=== PATIENT | female | born 1940 | race Caucasian/White ===

== ENCOUNTER 2019-04-12 14:15 | Inpatient (IN) | payer MEDICARE, BC ==
[2019-04-12] MEDS ORDERED: Sodium Chloride 0.9% 10 ML Syringe FLUSH PRN (16:06)
[2019-04-12] MEDS ORDERED: Temazepam 15 MG Cap PO PRN (16:06)
[2019-04-12] MEDS ORDERED: Acetaminophen/HYDROcodone 325-5 MG Tab PO PRN (16:06)
[2019-04-12] MEDS ORDERED: Docusate Sodium 100 MG Cap PO PRN (16:06)
[2019-04-12] MEDS ORDERED: Albuterol 8 GM Inhaler INH PRN (16:11)
[2019-04-12 16:37] LABS: CHLORIDE,CL 104 mEq/L (98-106); SODIUM,NA 143 mEq/L (136-145)
[2019-04-12] MEDS ORDERED: Levofloxacin/Dextrose 5%-Water 500 MG in Premix Bag 1 BAG IV ONE ×2 (16:45→17:00)
[2019-04-12] MEDS: Albuterol/Ipratropium 3.0-0.5 MG/3 ML Neb Soln NEB SCH ×2 (16:57→20:08)
[2019-04-12] MEDS: Potassium Chloride 10 MEQ Tab.ER PO SCH (16:57)
[2019-04-12] MEDS: methylPREDNISolone Sodium Succinate 125 MG/2 ML SDV IVPUSH SCH (16:58)
[2019-04-12] MEDS ORDERED: Levofloxacin/Dextrose 5%-Water 250 MG in Premix Bag 1 BAG IV SCH (17:00)
[2019-04-12 17:37] LABS: O2 DELIVERY DEVICE NASAL CANNULA
[2019-04-12 17:38] LABS: BICARBONATE,ARTERIAL 32.5 mm/L (22.0-26.0); O2 SATURATION ARTERIAL 89 % (95-98); PCO2 ARTERIAL 52 mm/Hg0 (35-45); PO2 ARTERIAL 57 mm/Hg (80-100)
[2019-04-12] MEDS: Enoxaparin 40 MG/0.4 ML Syringe SUBCUT SCH (20:08)
[2019-04-12] MEDS: Acetaminophen 500 MG Tab PO PRN (20:11)
[2019-04-13] MEDS: Pantoprazole 40 MG Tab.CR PO SCH (06:54)
[2019-04-13] MEDS: Torsemide 20 MG Tab PO SCH (07:11)
[2019-04-13] MEDS: Potassium Chloride 10 MEQ Tab.ER PO SCH ×2 (07:11→17:39)
[2019-04-13] MEDS: methylPREDNISolone Sodium Succinate 125 MG/2 ML SDV IVPUSH SCH ×2 (07:11→19:37)
[2019-04-13] MEDS: Albuterol/Ipratropium 3.0-0.5 MG/3 ML Neb Soln NEB SCH ×4 (07:11→19:36)
[2019-04-13] MEDS: Acetaminophen 500 MG Tab PO PRN ×2 (09:26→19:37)
[2019-04-13] MEDS: Pantoprazole 40 MG Vial IVPUSH SCH (09:28)
[2019-04-13] MEDS ORDERED: Iopamidol 612 MG/ML 100 ML Bottle IVPUSH ONE (10:32)
[2019-04-13] MEDS ORDERED: Levofloxacin/Dextrose 5%-Water 250 MG in Premix Bag 1 BAG IV SCH (16:00)
[2019-04-13] MEDS: Enoxaparin 40 MG/0.4 ML Syringe SUBCUT SCH (19:36)
--- NOTE | 2019-04-13 21:02 | PCM.PN ---
- General Info Date of Service: 04/13/19 Admission Dx/Problem (Free Text): COPD Exacerbation Functional Status: Reports: Pain Controlled, Tolerating Diet, Ambulating - Review of Systems General: Reports: Weakness, Fatigue. Denies: Fever HEENT: Reports: Sinus Congestion, Rhinitis Pulmonary: Reports: Shortness of Breath, Pleuritic Chest Pain, Cough, Sputum, Wheezing Cardiovascular: Denies: Chest Pain, Lightheadedness Gastrointestinal: Reports: Other (heartburn). Denies: Abdominal Pain, Nausea, Vomiting Genitourinary: Reports: No Symptoms Musculoskeletal: Reports: Back Pain Skin: Reports: No Symptoms Neurological: Reports: No Symptoms Psychiatric: Reports: No Symptoms - Patient Data Vitals - Most Recent: Last Vital Signs Temp 98.1 F 04/13/19 20:00 Pulse 101 H 04/13/19 20:00 Resp 18 04/13/19 20:00 BP 131/71 04/13/19 20:00 Pulse Ox 97 04/13/19 20:00 Weight - Most Recent: 152 lb 4.8 oz Lab Results Last 24 Hours: Laboratory Results - last 24 hr 04/13/19 Range/Units 06:58 Urine Color Yellow (YELLOW) Urine Appearance Clear (CLEAR) Urine pH 8.5 H (4.5-8.0) Ur Specific [place] 1.015 (1.003-1.020) Urine Protein Negative (NEGATIVE) mg/dL Urine Glucose (UA) Negative (NEGATIVE) mg/dL Urine Ketones Negative (NEGATIVE) mg/dL Urine Occult Blood Negative (NEGATIVE) Urine Nitrite Negative (NEGATIVE) Urine Bilirubin Negative (NEGATIVE) Urine Urobilinogen 0.2 (0.2-1.0) EU/dL Ur Leukocyte Esterase Negative (NEGATIVE) Urine RBC Not seen (0-5) /HPF Urine WBC Not seen (0-5) /HPF Ur Squamous Epith Cells Occasional H (NOT SEEN) /HPF Urine Bacteria Occasional H (NOT SEEN) /HPF Med Orders - Current: Current Medications Acetaminophen (Tylenol Extra Strength) 1,000 mg PO Q6H PRN PRN Reason: Pain Last Admin: 04/13/19 19:37 Dose: 1,000 mg Hydrocodone Bitart/Acetaminophen ([place] 325-5 Mg) 1 tab PO Q4H PRN PRN Reason: Pain (moderate 4-6) Albuterol (Ventolin Hfa) 0 gm INH Q6H PRN PRN Reason: Shortness of Breath Albuterol/Ipratropium (Duoneb 3.0-0.5 Mg/3 Ml) 3 ml NEB QIDRT [facility] Last Admin: 04/13/19 19:36 Dose: 3 ml Docusate Sodium (Colace) 100 mg PO BID PRN PRN Reason: Constipation Enoxaparin Sodium (Lovenox) 40 mg SUBCUT Q24H [facility] Last Admin: 04/13/19 19:36 Dose: 40 mg Levofloxacin/Dextrose 250 mg/ (Premix) 50 mls @ 50 mls/hr IV Q24H [facility] Last Admin: 04/13/19 17:40 Dose: 50 mls/hr Magnesium Oxide (Magnesium Oxide) 250 mg PO DAILY [facility] Last Admin: 04/13/19 07:11 Dose: 250 mg Methylprednisolone Sodium Succinate (Solu-Medrol) 62.5 mg IVPUSH BID [facility] Last Admin: 04/13/19 19:37 Dose: 62.5 mg Pantoprazole Sodium (Protonix) 40 mg PO ACBREAKFAST [facility] Last Admin: 04/13/19 06:54 Dose: 40 mg Pantoprazole Sodium (Protonix Iv) 40 mg IVPUSH DAILY [facility] Last Admin: 04/13/19 09:28 Dose: 40 mg Potassium Chloride (Klor-Con 10) 20 meq PO BIDMEALS [facility] Last Admin: 04/13/19 17:39 Dose: 20 meq Sodium Chloride (Saline Flush) 10 ml FLUSH ASDIRECTED PRN PRN Reason: Keep Vein Open Temazepam (Restoril) 15 mg PO BEDTIME PRN PRN Reason: Sleep Torsemide (Demadex) 20 mg PO DAILY [facility] Last Admin: 04/13/19 07:11 Dose: 20 mg Discontinued Medications Levofloxacin/Dextrose 500 mg/ (Premix) 100 mls @ 100 mls/hr IV ONETIME ONE Stop: 04/12/19 17:59 Last Admin: 04/12/19 16:57 Dose: 100 mls/hr Iopamidol (Isovue-300 (61%)) 100 ml IVPUSH ONETIME ONE Stop: 04/13/19 10:33 Last Admin: 04/13/19 19:20 Dose: 100 ml - Exam Quality Assessment: Supplemental Oxygen General: Alert, Oriented HEENT: Mucous Membr. Moist/[place] Neck: Supple Lungs: Decreased Breath Sounds, Wheezing Cardiovascular: Regular Rate, Regular Rhythm GI/Abdominal Exam: Normal Bowel Sounds, Soft, Non-Tender Extremities: Normal Inspection, No Pedal Edema Skin: Warm, Dry Neurological: No New Focal Deficit - Problem List & Annotations (1) COPD exacerbation SNOMED Code(s): 134264905 Code(s): J44.1 - CHRONIC OBSTRUCTIVE PULMONARY DISEASE W (ACUTE) EXACERBATION Status: Acute Priority: High Current Visit: Yes - Problem List Review Problem List Initiated/Reviewed/Updated: Yes - My Orders Last 24 Hours: My Active Orders 04/13/19 08:45 Pantoprazole [ProTONIX IV] 40 mg IVPUSH DAILY 04/13/19 10:26 Chest w Cont [CT] Routine - Assessment Assessment:: COPD Exacerbation - Plan Plan:: Patient continues to feel short of breath, worsens with eating, conversation and ambulation but admits better than yesterday on admit. She is able to tolerate short distances with oxygen on. Sats maintaining over 90% today. Continues to have moist cough, productive at times. Lung sounds diminished, expiratory wheezing throughout. Complains of pain under her right collarbone that radiates through to her back. States thought possibly related to heartburn , took her omeprazole early today. Worse with cough. WBC on admit stable at 8.5. D-Dimer negative. Troponin negative. IV Protonix given. Continue IV antibiotics and steroids, nebulizer treatments. Inappropriate for discharge.
[2019-04-14] MEDS: Pantoprazole 40 MG Tab.CR PO SCH (06:25)
[2019-04-14] MEDS: Albuterol/Ipratropium 3.0-0.5 MG/3 ML Neb Soln NEB SCH (07:31)
[2019-04-14] MEDS: Pantoprazole 40 MG Vial IVPUSH SCH (07:31)
[2019-04-14] MEDS: methylPREDNISolone Sodium Succinate 125 MG/2 ML SDV IVPUSH SCH (07:31)
[2019-04-14] MEDS: Potassium Chloride 10 MEQ Tab.ER PO SCH (07:31)
[2019-04-14] MEDS: Torsemide 20 MG Tab PO SCH (07:31)
[2019-04-14 07:47] VITALS: BP 120/65
--- NOTE | 2019-04-14 13:42 | PCM.DCSUM1 ---
Discharge Summary - Hospital Course Free Text/Narrative:: Patient presented to clinic to DR. Chakraborty with increased chest congestion, cough and shortness of breath. Chest tight. More short of breath than her usual related to her COPD. Cough has been dry. Patient has been experiencing pleuritic pain with cough near the collarbone. She relates she always has pain in her back with cough but over the last 2 weeks seems to radiate from chest through to her back. Lung sounds in clinic noted minimal air exchange with diffuse wheezing throughout. ADmitted for further work up, chest xray, antibiotics and steroids. Diagnosis: Stroke: No Modified Kaden Scale: No Symptoms at All Modified Kaden Scale Score: 0 - Discharge Data Discharge Date: 04/14/19 Discharge Disposition: Home, Self-Care 01 Condition: Good - Discharge Diagnosis/Problem(s) (1) COPD exacerbation SNOMED Code(s): 523668475 ICD Code: J44.1 - CHRONIC OBSTRUCTIVE PULMONARY DISEASE W (ACUTE) EXACERBATION Status: Acute Priority: High - Patient Summary/Data Complications: none Hospital Course: Patient has improved. Does still have shortness of breath but feels more near her norm. She has better air exchange, less wheezing. Is ambulating with oxygen and tolerating better. She has been afebrile. Was given dose of IV Protonix as she felt that the chest discomfort possibly related to heartburn. CT scan of chest was done, no new concerns. Will discharge home on Levaquin for 7 days, prednisone for 5 days, her usual nebs and oxygen. - Patient Instructions Diet: Usual Diet as Tolerated Activity: As Tolerated - Discharge Plan *PRESCRIPTION DRUG MONITORING PROGRAM REVIEWED*: No *COPY OF PRESCRIPTION DRUG MONITORING REPORT IN PATIENT KATELYN: No Prescriptions/Med Rec: Levofloxacin [Levaquin] 500 mg PO DAILY #7 tablet predniSONE [Prednisone] 40 mg PO DAILY #10 tablet Home Medications: Home Meds Acetaminophen [Tylenol Extra Strength] 1,000 mg PO ASDIRECTED PRN 09/02/18 [ History] Albuterol [Ventolin HFA] 1 puff INH Q6HR PRN 09/02/18 [History] Arformoterol [Brovana] 1 each INH BID 09/02/18 [History] Magnesium 200 mg PO DAILY 09/02/18 [History] Omeprazole 20 mg PO DAILY 09/02/18 [History] Potassium Chloride [Klor-Con M20] 20 meq PO BID 09/02/18 [History] Torsemide 20 mg PO DAILY 09/02/18 [History] Levofloxacin [Levaquin] 500 mg PO DAILY #7 tablet 04/14/19 [Rx] predniSONE [Prednisone] 40 mg PO DAILY #10 tablet 04/14/19 [Rx] Patient Handouts: Chronic Obstructive Pulmonary Disease Exacerbation Referrals: Vince Chakraborty MD [Primary Care Provider] - (See Dr. Chakraborty in 2 weeks for recheck) - Discharge Summary/Plan Comment DC Time >30 min.: No - General Info Date of Service: 04/14/19 Admission Dx/Problem (Free Text: COPD Exacerbation Functional Status: Reports: Pain Controlled, Tolerating Diet, Ambulating - Review of Systems General: Reports: Weakness, Fatigue. Denies: Fever HEENT: Reports: Rhinitis Pulmonary: Reports: Shortness of Breath, Pleuritic Chest Pain, Cough. Denies: Sputum Cardiovascular: Denies: Chest Pain, Edema, Lightheadedness Gastrointestinal: Denies: Abdominal Pain, Nausea, Vomiting Genitourinary: Reports: No Symptoms Musculoskeletal: Reports: No Symptoms Skin: Reports: No Symptoms Neurological: Reports: No Symptoms Psychiatric: Reports: No Symptoms - Patient Data Vitals - Most Recent: Last Vital Signs Temp 98.1 F 04/14/19 07:47 Pulse 67 04/14/19 07:47 Resp 20 04/14/19 07:47 BP 120/65 04/14/19 07:47 Pulse Ox 97 04/14/19 07:47 Weight - Most Recent: 152 lb 4.8 oz Med Orders - Current: Current Medications Discontinued Medications Acetaminophen (Tylenol Extra Strength) 1,000 mg PO Q6H PRN PRN Reason: Pain Last Admin: 04/13/19 19:37 Dose: 1,000 mg Hydrocodone Bitart/Acetaminophen ([place] 325-5 Mg) 1 tab PO Q4H PRN PRN Reason: Pain (moderate 4-6) Albuterol (Ventolin Hfa) 0 gm INH Q6H PRN PRN Reason: Shortness of Breath Albuterol/Ipratropium (Duoneb 3.0-0.5 Mg/3 Ml) 3 ml NEB QIDRT [facility] Last Admin: 04/14/19 07:31 Dose: 3 ml Docusate Sodium (Colace) 100 mg PO BID PRN PRN Reason: Constipation Enoxaparin Sodium (Lovenox) 40 mg SUBCUT Q24H [facility] Last Admin: 04/13/19 19:36 Dose: 40 mg Levofloxacin/Dextrose 250 mg/ (Premix) 50 mls @ 50 mls/hr IV Q24H [facility] Last Admin: 04/13/19 17:40 Dose: 50 mls/hr Levofloxacin/Dextrose 500 mg/ (Premix) 100 mls @ 100 mls/hr IV ONETIME ONE Stop: 04/12/19 17:59 Last Admin: 04/12/19 16:57 Dose: 100 mls/hr Iopamidol (Isovue-300 (61%)) 100 ml IVPUSH ONETIME ONE Stop: 04/13/19 10:33 Last Admin: 04/13/19 19:20 Dose: 100 ml Magnesium Oxide (Magnesium Oxide) 250 mg PO DAILY [facility] Last Admin: 04/14/19 07:31 Dose: 250 mg Methylprednisolone Sodium Succinate (Solu-Medrol) 62.5 mg IVPUSH BID [facility] Last Admin: 04/14/19 07:31 Dose: 62.5 mg Pantoprazole Sodium (Protonix) 40 mg PO ACBREAKFAST [facility] Last Admin: 04/14/19 06:25 Dose: Not Given Pantoprazole Sodium (Protonix Iv) 40 mg IVPUSH DAILY [facility] Last Admin: 04/14/19 07:31 Dose: 40 mg Potassium Chloride (Klor-Con 10) 20 meq PO BIDMEALS [facility] Last Admin: 04/14/19 07:31 Dose: 20 meq Sodium Chloride (Saline Flush) 10 ml FLUSH ASDIRECTED PRN PRN Reason: Keep Vein Open Temazepam (Restoril) 15 mg PO BEDTIME PRN PRN Reason: Sleep Torsemide (Demadex) 20 mg PO DAILY [facility] Last Admin: 04/14/19 07:31 Dose: 20 mg - Exam Quality Assessment: Reports: Supplemental Oxygen General: Reports: Alert, Oriented HEENT: Reports: Mucous Membr. Moist/[place] Neck: Reports: Supple Lungs: Reports: Decreased Breath Sounds Cardiovascular: Reports: Regular Rate, Regular Rhythm GI/Abdominal Exam: Normal Bowel Sounds, Soft, Non-Tender Extremities: Normal Inspection, No Pedal Edema Skin: Reports: Warm, Dry Neurological: Reports: No New Focal Deficit
== END 2019-04-14 09:20 | disposition home or self-care (01) | DRG 192 ==
LOC: CC.MS 14:15 → UNDOADMIN 14:15 → CC.MS 16:06
PROVIDERS: ADMIT Family Medicine; ATTEND Family Medicine
DX: J44.1 Chronic obstructive pulmonary disease with (acute) exacerbation (principal); K21.9 Gastro-esophageal reflux disease without esophagitis; R07.81 Pleurodynia; E78.5 Hyperlipidemia, unspecified; M81.8 Other osteoporosis without current pathological fracture; E55.9 Vitamin D deficiency, unspecified; Z88.8 Allergy status to other drugs, medicaments and biological substances; Z98.49 Cataract extraction status, unspecified eye; Z87.891 Personal history of nicotine dependence
CPT/HCPCS: 36415; 36600; 71046; 71260; 80048; 81001; 82803; 84484; 85025; 85379; 86140; 93005; 94640; A4217; A9270-GY; C9113; J1650; J1956; J2930; J7620-GY; Q9967

== ENCOUNTER 2019-08-16 14:00 | Inpatient (IN) | payer MEDICARE, BC ==
[2019-08-16] MEDS ORDERED: Temazepam 15 MG Cap PO PRN (15:05)
[2019-08-16] MEDS ORDERED: Acetaminophen 325 MG Tab PO PRN (15:05)
[2019-08-16] MEDS ORDERED: Sodium Chloride 0.9% 10 ML Syringe FLUSH PRN (15:05)
[2019-08-16] MEDS ORDERED: Potassium Chloride Riders 40 MEQ in Premix Bag 1 BAG IV ONE (15:53)
[2019-08-16] MEDS ORDERED: Levofloxacin/Dextrose 5%-Water 500 MG in Premix Bag 1 BAG IV SCH (16:00)
[2019-08-16] MEDS: Albuterol/Ipratropium 3.0-0.5 MG/3 ML Neb Soln NEB SCH ×2 (16:04→20:08)
[2019-08-16] MEDS: methylPREDNISolone Sodium Succinate 125 MG/2 ML SDV IVPUSH SCH (16:05)
[2019-08-16] MEDS: Enoxaparin 30 MG/0.3 ML Syringe SUBCUT SCH (16:18)
[2019-08-16] MEDS ORDERED: Sodium Chloride 0.9% 250 ML IV SCH (17:45)
[2019-08-16] MEDS: Levofloxacin/Dextrose 5%-Water 500 MG in Premix Bag 1 BAG IV SCH (19:32)
[2019-08-16] MEDS ORDERED: Magnesium Sulfate/D5W 2 GM in Premix Bag 1 BAG IV ONE (20:42)
[2019-08-16] MEDS: BROVANA 15 MCG INH SCH (21:39)
[2019-08-17] MEDS ORDERED: Albuterol 0.083% 2.5 MG/3 ML Neb Soln INH SCH
[2019-08-17] MEDS: Acetaminophen 500 MG Tab PO PRN ×3 (04:02→19:58)
[2019-08-17] MEDS ORDERED: OMEPRAZOLE 20 MG PO SCH ×2 (07:00→08:51)
[2019-08-17 07:40] LABS: CHLORIDE,CL 100 mEq/L (98-106); SODIUM,NA 141 mEq/L (136-145)
[2019-08-17] MEDS ORDERED: TORSEMIDE 20 MG PO SCH (08:00)
[2019-08-17] MEDS ORDERED: KCL 20 MEQ PO SCH (08:00)
[2019-08-17] MEDS ORDERED: MAGNESIUM 200 MG PO SCH (08:00)
[2019-08-17] MEDS: BROVANA 15 MCG INH SCH (08:26)
[2019-08-17] MEDS: Albuterol/Ipratropium 3.0-0.5 MG/3 ML Neb Soln NEB SCH ×4 (08:35→19:49)
[2019-08-17] MEDS: methylPREDNISolone Sodium Succinate 125 MG/2 ML SDV IVPUSH SCH ×2 (08:35→15:58)
--- NOTE | 2019-08-17 08:54 | PCM.PN ---
- General Info Date of Service: 08/17/19 Admission Dx/Problem (Free Text): COPD Exacerbation Hypokalemia Hypomagnesemia Functional Status: Reports: Pain Controlled, Tolerating Diet, Ambulating ( ambulating short distances but admits gets short of breath) - Review of Systems General: Reports: Weakness, Fatigue. Denies: Fever HEENT: Reports: Rhinitis. Denies: Ear Pain, Sinus Congestion Pulmonary: Reports: Shortness of Breath, Cough. Denies: Wheezing Cardiovascular: Denies: Chest Pain, Edema, Lightheadedness Gastrointestinal: Denies: Abdominal Pain, Nausea, Vomiting Genitourinary: Reports: No Symptoms Musculoskeletal: Reports: No Symptoms Skin: Reports: No Symptoms Neurological: Reports: No Symptoms Psychiatric: Reports: No Symptoms - Patient Data Vitals - Most Recent: Last Vital Signs Temp 98.1 F 08/17/19 07:44 Pulse 64 08/17/19 07:44 Resp 18 08/17/19 07:44 BP 115/54 L 08/17/19 07:44 Pulse Ox 97 08/17/19 07:44 Weight - Most Recent: 147 lb 11.2 oz Lab Results Last 24 Hours: Laboratory Results - last 24 hr 08/16/19 08/16/19 08/16/19 Range/Units 15:15 15:15 17:46 WBC 11.4 H (5.0-10.0) 10^3/uL RBC 4.03 (4.00-5.50) 10^6/uL Hgb 11.8 L (12.0-16.0) g/dL Hct 36.9 L (37.0-47.0) % MCV 91.6 (82.0-94.0) fL MCH 29.3 (27.0-32.0) pg MCHC 32.0 L (33.0-38.0) g/dL RDW Coeff of Vivek 12.1 (11.0-15.0) % Plt Count 275 (150-400) 10^3/uL Neut % (Auto) 67.5 (35-85) % Lymph % (Auto) 20.0 (10-55) % [place] % (Auto) 11.2 (0-16) % Eos % (Auto) 0.9 (0-5) % Baso % (Auto) 0.4 (0-3) % Neut # (Auto) 7.70 H (1.80-7.00) 10^3/uL Lymph # (Auto) 2.28 (1.00-4.80) 10^3/uL [place] # (Auto) 1.28 H (0.00-0.80) 10^3/uL Eos # (Auto) 0.10 (0.00-0.45) 10^3/uL Baso # (Auto) 0.04 10^3/uL Sodium 143 (136-145) mEq/L Potassium 2.9 L* D (3.5-5.0) mEq/L Chloride 98 (98-106) mEq/L Carbon Dioxide 42 H* (21-32) mmol/L BUN 13 (7-18) mg/dL Creatinine 1.0 (0.6-1.0) mg/dL Est Cr Clr Drug Dosing 34.90 mL/min Estimated GFR (MDRD) 53 L (>=60) mL/min Glucose 87 (75-99) mg/dL Calcium 8.3 L (8.4-10.1) mg/dL Magnesium 1.6 L (1.8-2.4) mg/dL C-Reactive Protein 11.9 H (0.2-0.8) mg/dL 08/17/19 08/17/19 Range/Units 05:11 07:10 WBC 8.4 (5.0-10.0) 10^3/uL RBC 3.77 L (4.00-5.50) 10^6/uL Hgb 11.0 L (12.0-16.0) g/dL Hct 33.8 L (37.0-47.0) % MCV 89.7 (82.0-94.0) fL MCH 29.2 (27.0-32.0) pg MCHC 32.5 L (33.0-38.0) g/dL RDW Coeff of Vivek 11.9 (11.0-15.0) % Plt Count 284 (150-400) 10^3/uL Neut % (Auto) 82.2 (35-85) % Lymph % (Auto) 11.9 (10-55) % [place] % (Auto) 5.8 (0-16) % Eos % (Auto) 0 (0-5) % Baso % (Auto) 0.1 (0-3) % Neut # (Auto) 6.91 (1.80-7.00) 10^3/uL Lymph # (Auto) 1.00 (1.00-4.80) 10^3/uL [place] # (Auto) 0.49 (0.00-0.80) 10^3/uL Eos # (Auto) 0.00 (0.00-0.45) 10^3/uL Baso # (Auto) 0.01 10^3/uL Sodium 141 (136-145) mEq/L Potassium 3.5 D (3.5-5.0) mEq/L Chloride 100 (98-106) mEq/L Carbon Dioxide 36 H (21-32) mmol/L BUN 13 (7-18) mg/dL Creatinine 0.9 (0.6-1.0) mg/dL Est Cr Clr Drug Dosing 38.77 mL/min Estimated GFR (MDRD) > 60 (>=60) mL/min Glucose 135 H D (75-99) mg/dL Calcium 8.2 L (8.4-10.1) mg/dL Magnesium 2.1 (1.8-2.4) mg/dL C-Reactive Protein 9.5 H (0.2-0.8) mg/dL Med Orders - Current: Current Medications Acetaminophen (Tylenol) 650 mg PO Q4H PRN PRN Reason: Pain (Mild 1-3)/fever Acetaminophen (Tylenol Extra Strength) 1,000 mg PO Q6H PRN PRN Reason: Pain Last Admin: 08/17/19 04:02 Dose: 1,000 mg Albuterol/Ipratropium (Duoneb 3.0-0.5 Mg/3 Ml) 3 ml NEB QIDRT [facility] Last Admin: 08/17/19 08:35 Dose: 3 ml Enoxaparin Sodium (Lovenox) 30 mg SUBCUT Q24H [facility] Last Admin: 08/16/19 16:18 Dose: 30 mg Levofloxacin/Dextrose 500 mg/ (Premix) 100 mls @ 100 mls/hr IV DAILY@1999 [facility] Last Admin: 08/16/19 19:32 Dose: Not Given Methylprednisolone Sodium Succinate (Solu-Medrol) 62.5 mg IVPUSH BID@0800,1600 [facility] Last Admin: 08/17/19 08:35 Dose: 62.5 mg Patients Own (Magnesium 200mg) 0 each PO DAILY [facility] Last Admin: 08/17/19 08:27 Dose: 1 each Patients Own (Omeprazole 20mg) 0 each PO ACBREAKFAST [facility] Last Admin: 08/17/19 07:02 Dose: 20 each Patients Own Brovana (15 Mcg) 0 each INH BIDRT [facility] Last Admin: 08/17/19 08:26 Dose: 1 each Non-Formulary Medication (Nf Drug) 0 each PO TIDMEALS [facility] Sodium Chloride (Saline Flush) 10 ml FLUSH ASDIRECTED PRN PRN Reason: Keep Vein Open Temazepam (Restoril) 15 mg PO BEDTIME PRN PRN Reason: Sleep Torsemide (Demadex) 20 mg PO DAILY [facility] Last Admin: 08/17/19 08:26 Dose: 20 mg Discontinued Medications Levofloxacin/Dextrose 500 mg/ (Premix) 100 mls @ 100 mls/hr IV Q24H [facility] Last Admin: 08/16/19 16:38 Dose: 100 mls/hr Potassium Chloride 40 meq/ (Premix) 100 mls @ 25 mls/hr IV ONETIME ONE Stop: 08/16/19 19:52 Last Admin: 08/16/19 16:11 Dose: 25 mls/hr Sodium Chloride (Normal Saline) 250 mls @ 75 mls/hr IV ASDIRECTED [facility] Stop: 08/16/19 21:04 Last Admin: 08/16/19 18:04 Dose: 75 mls/hr Magnesium Sulfate/Dextrose 2 (gm/ Premix) 200 mls @ 100 mls/hr IV ONETIME ONE Stop: 08/16/19 22:41 Last Admin: 08/16/19 21:38 Dose: 100 mls/hr Patients Own Kcl 20 (Meq) 0 each PO BIDMEALS [facility] Last Admin: 08/17/19 08:27 Dose: 1 each - Exam Quality Assessment: Supplemental Oxygen General: Alert, Oriented HEENT: Mucous Membr. Moist/[place] Neck: Supple Lungs: Decreased Breath Sounds Cardiovascular: Regular Rate, Regular Rhythm GI/Abdominal Exam: Normal Bowel Sounds, Soft, Non-Tender Extremities: Normal Inspection, Pedal Edema (trace) Skin: Warm, Dry Neurological: No New Focal Deficit - Problem List & Annotations (1) COPD exacerbation SNOMED Code(s): 380195257 Code(s): J44.1 - CHRONIC OBSTRUCTIVE PULMONARY DISEASE W (ACUTE) EXACERBATION Status: Acute Priority: High Current Visit: Yes (2) Hypokalemia SNOMED Code(s): 97201978 Code(s): E87.6 - HYPOKALEMIA Status: Acute Priority: High Current Visit : Yes (3) Hypomagnesemia SNOMED Code(s): 979222541 Code(s): E83.42 - HYPOMAGNESEMIA Status: Acute Priority: High Current Visit: Yes - Problem List Review Problem List Initiated/Reviewed/Updated: Yes - My Orders Last 24 Hours: My Active Orders 08/16/19 20:31 Acetaminophen [Tylenol Extra Strength] 1,000 mg PO Q6H PRN 08/16/19 21:00 Non-Formulary Medication [NF Drug] 0 each INH BIDRT 08/17/19 07:00 Non-Formulary Medication [NF Drug] 0 each PO ACBREAKFAST 08/17/19 08:00 Non-Formulary Medication [NF Drug] 0 each PO DAILY Torsemide [Demadex] 20 mg PO DAILY 08/17/19 12:00 Non-Formulary Medication [NF Drug] See Dose Instructions PO TIDMEALS - Assessment Assessment:: COPD Exacerbation Hypokalemia Hypomagnesemia - Plan Plan:: Patient feeling mildly better at rest. Admits still gets short of breath easily with any exertion. Does continue to have tight cough. Is chronically on oxygen at home for COPD. Lung sounds diminished this am. Potassium has improved to 3.5 today, sodium 141. CRP 9.5. Magnesium 2.1 today. Was given IV potassium, IV magnesium yesterday. Will transfer patient to acute inpatient due to dyspnea. Continue IV Levaquin, steroids and nebs. Follow electrolytes. Potassium oral dose increased to TID.
[2019-08-17] MEDS ORDERED: MAGNESIUM OXIDE 250 MG PO SCH (09:00)
[2019-08-17] MEDS: ARFORMOTEROL 15 MCG INH SCH ×2 (09:23→19:49)
[2019-08-17] MEDS: Potassium Chloride 10 MEQ Tab.ER PO SCH ×2 (12:05→18:35)
[2019-08-17] MEDS: Enoxaparin 30 MG/0.3 ML Syringe SUBCUT SCH (15:58)
[2019-08-17] MEDS: Levofloxacin/Dextrose 5%-Water 500 MG in Premix Bag 1 BAG IV SCH (19:49)
[2019-08-18] MEDS ORDERED: Pantoprazole 40 MG Tab.CR ONE (06:32)
[2019-08-18] MEDS: Pantoprazole 40 MG Tab.CR PO SCH (06:48)
[2019-08-18 07:34] LABS: CHLORIDE,CL 102 mEq/L (98-106); SODIUM,NA 146 mEq/L (136-145)
[2019-08-18] MEDS: Albuterol/Ipratropium 3.0-0.5 MG/3 ML Neb Soln NEB SCH ×4 (07:41→19:39)
[2019-08-18] MEDS: methylPREDNISolone Sodium Succinate 125 MG/2 ML SDV IVPUSH SCH ×2 (07:41→16:08)
[2019-08-18] MEDS: Potassium Chloride 10 MEQ Tab.ER PO SCH ×3 (07:42→17:34)
[2019-08-18] MEDS: Torsemide 20 MG Tab PO SCH (07:42)
[2019-08-18] MEDS ORDERED: Potassium Chloride 10 MEQ Tab.ER ONE ×2 (07:42→17:41)
[2019-08-18] MEDS: ARFORMOTEROL 15 MCG INH SCH ×2 (07:43→19:39)
--- NOTE | 2019-08-18 08:57 | PCM.PN ---
- General Info Date of Service: 08/18/19 Admission Dx/Problem (Free Text): COPD Exacerbation Hypokalemia Hypomagnesemia Functional Status: Reports: Pain Controlled, Tolerating Diet, Ambulating - Review of Systems General: Reports: Weakness, Fatigue, Malaise HEENT: Reports: Post Nasal Drip, Sinus Congestion, Rhinitis Pulmonary: Reports: Shortness of Breath, Cough, Wheezing Cardiovascular: Denies: Chest Pain, Edema, Lightheadedness Gastrointestinal: Denies: Abdominal Pain, Nausea, Vomiting Genitourinary: Reports: No Symptoms Musculoskeletal: Reports: No Symptoms Skin: Reports: No Symptoms Neurological: Reports: Other (complains of tremors at times, worse now but admits has had for years. ) - Patient Data Vitals - Most Recent: Last Vital Signs Temp 98.1 F 08/18/19 07:54 Pulse 72 08/18/19 07:54 Resp 20 08/18/19 07:54 BP 111/52 L 08/18/19 07:54 Pulse Ox 100 08/18/19 07:54 Weight - Most Recent: 147 lb 11.2 oz Lab Results Last 24 Hours: Laboratory Results - last 24 hr 08/18/19 08/18/19 Range/Units 07:15 07:15 WBC 11.6 H (5.0-10.0) 10^3/uL RBC 3.66 L (4.00-5.50) 10^6/uL Hgb 10.8 L (12.0-16.0) g/dL Hct 33.3 L (37.0-47.0) % MCV 91.0 (82.0-94.0) fL MCH 29.5 (27.0-32.0) pg MCHC 32.4 L (33.0-38.0) g/dL RDW Coeff of Vivek 12.2 (11.0-15.0) % Plt Count 325 (150-400) 10^3/uL Neut % (Auto) 76.5 (35-85) % Lymph % (Auto) 15.0 (10-55) % [place] % (Auto) 8.5 (0-16) % Eos % (Auto) 0 (0-5) % Baso % (Auto) 0 (0-3) % Neut # (Auto) 8.89 H (1.80-7.00) 10^3/uL Lymph # (Auto) 1.74 (1.00-4.80) 10^3/uL [place] # (Auto) 0.99 H (0.00-0.80) 10^3/uL Eos # (Auto) 0.00 (0.00-0.45) 10^3/uL Baso # (Auto) 0.00 10^3/uL Sodium 146 H (136-145) mEq/L Potassium 3.5 (3.5-5.0) mEq/L Chloride 102 (98-106) mEq/L Carbon Dioxide 37 H (21-32) mmol/L BUN 16 (7-18) mg/dL Creatinine 0.9 (0.6-1.0) mg/dL Est Cr Clr Drug Dosing 38.77 mL/min Estimated GFR (MDRD) > 60 (>=60) mL/min Glucose 117 H (75-99) mg/dL Calcium 8.5 (8.4-10.1) mg/dL Magnesium 2.0 (1.8-2.4) mg/dL C-Reactive Protein 3.9 H (0.2-0.8) mg/dL Med Orders - Current: Current Medications Acetaminophen (Tylenol) 650 mg PO Q4H PRN PRN Reason: Pain (Mild 1-3)/fever Acetaminophen (Tylenol Extra Strength) 1,000 mg PO Q6H PRN PRN Reason: Pain Last Admin: 08/17/19 19:58 Dose: 1,000 mg Albuterol/Ipratropium (Duoneb 3.0-0.5 Mg/3 Ml) 3 ml NEB QIDRT [facility] Last Admin: 08/18/19 07:41 Dose: 3 ml Enoxaparin Sodium (Lovenox) 30 mg SUBCUT Q24H [facility] Last Admin: 08/17/19 15:58 Dose: 30 mg Levofloxacin/Dextrose 500 mg/ (Premix) 100 mls @ 100 mls/hr IV DAILY@2000 [facility] Last Admin: 08/17/19 19:49 Dose: 100 mls/hr Magnesium Oxide (Magnesium Oxide) 250 mg PO DAILY [facility] Last Admin: 08/18/19 07:42 Dose: 250 mg Methylprednisolone Sodium Succinate (Solu-Medrol) 62.5 mg IVPUSH BID@0800,1600 [facility] Last Admin: 08/18/19 07:41 Dose: 62.5 mg Ownmed Brovana (15 Mcg Nebule) 1 each INH BIDRT [facility] Last Admin: 08/18/19 07:43 Dose: 1 each Pantoprazole Sodium (Protonix) 40 mg PO ACBREAKFAST [facility] Last Admin: 08/18/19 06:48 Dose: 40 mg Potassium Chloride (Klor-Con 10) 20 meq PO TIDMEALS [facility] Last Admin: 08/18/19 07:42 Dose: 20 meq Sodium Chloride (Saline Flush) 10 ml FLUSH ASDIRECTED PRN PRN Reason: Keep Vein Open Temazepam (Restoril) 15 mg PO BEDTIME PRN PRN Reason: Sleep Torsemide (Demadex) 20 mg PO DAILY [facility] Last Admin: 08/18/19 07:42 Dose: 20 mg Discontinued Medications Levofloxacin/Dextrose 500 mg/ (Premix) 100 mls @ 100 mls/hr IV Q24H [facility] Last Admin: 08/16/19 16:38 Dose: 100 mls/hr Potassium Chloride 40 meq/ (Premix) 100 mls @ 25 mls/hr IV ONETIME ONE Stop: 08/16/19 19:52 Last Admin: 08/16/19 16:11 Dose: 25 mls/hr Sodium Chloride (Normal Saline) 250 mls @ 75 mls/hr IV ASDIRECTED [facility] Stop: 08/16/19 21:04 Last Admin: 08/16/19 18:04 Dose: 75 mls/hr Magnesium Sulfate/Dextrose 2 (gm/ Premix) 200 mls @ 100 mls/hr IV ONETIME ONE Stop: 08/16/19 22:41 Last Admin: 08/16/19 21:38 Dose: 100 mls/hr Magnesium Oxide (Magnesium Oxide) 250 mg PO DAILY [facility] Last Admin: 08/17/19 09:23 Dose: Not Given Magnesium Oxide (Magnesium Oxide) Confirm Administered Dose 250 mg .ROUTE .STK- MED ONE Stop: 08/18/19 07:43 Last Admin: 08/18/19 08:33 Dose: Not Given Patients Own (Magnesium 200mg) 0 each PO DAILY [facility] Last Admin: 08/17/19 08:27 Dose: 1 each Patients Own (Omeprazole 20mg) 0 each PO ACBREAKFAST [facility] Last Admin: 08/17/19 07:02 Dose: 20 each Patients Own Kcl 20 (Meq) 0 each PO BIDMEALS [facility] Last Admin: 08/17/19 08:27 Dose: 1 each Patients Own Brovana (15 Mcg) 0 each INH BIDRT [facility] Last Admin: 08/17/19 08:26 Dose: 1 each Ownmed (Omeprazole 20mg Cap) 1 each PO ACBREAKFAST SARINA Pantoprazole Sodium (Protonix) Confirm Administered Dose 40 mg .ROUTE .STK- MED ONE Stop: 08/18/19 06:33 Last Admin: 08/18/19 06:47 Dose: Not Given Potassium Chloride (Klor-Con 10) Confirm Administered Dose 20 meq .ROUTE .STK- MED ONE Stop: 08/18/19 07:43 Last Admin: 08/18/19 08:33 Dose: Not Given Torsemide (Demadex) 20 mg PO DAILY [facility] Last Admin: 08/17/19 08:26 Dose: 20 mg - Exam Quality Assessment: Supplemental Oxygen General: Alert, Oriented HEENT: Mucous Membr. Moist/[place] Neck: Supple Lungs: Decreased Breath Sounds, Wheezing Cardiovascular: Regular Rate, Regular Rhythm GI/Abdominal Exam: Normal Bowel Sounds, Soft, Non-Tender Extremities: Normal Inspection, No Pedal Edema Skin: Warm, Dry Neurological: No New Focal Deficit - Problem List & Annotations (1) COPD exacerbation SNOMED Code(s): 449384814 Code(s): J44.1 - CHRONIC OBSTRUCTIVE PULMONARY DISEASE W (ACUTE) EXACERBATION Status: Acute Priority: High Current Visit: Yes (2) Hypokalemia SNOMED Code(s): 69450726 Code(s): E87.6 - HYPOKALEMIA Status: Acute Priority: High Current Visit : Yes (3) Hypomagnesemia SNOMED Code(s): 680700858 Code(s): E83.42 - HYPOMAGNESEMIA Status: Acute Priority: High Current Visit: Yes - Problem List Review Problem List Initiated/Reviewed/Updated: Yes - My Orders Last 24 Hours: My Active Orders 08/17/19 09:00 Non-Formulary Medication [NF Drug] 1 each INH BIDRT 08/17/19 09:05 Patient Status [ADT] Routine 08/17/19 09:25 Magnesium Oxide 250 mg PO DAILY 08/17/19 09:26 Pantoprazole [ProTONIX] 40 mg PO ACBREAKFAST Torsemide [Demadex] 20 mg PO DAILY 08/17/19 12:00 Potassium Chloride [Klor-Con 10] 20 meq PO TIDMEALS 08/19/19 05:11 BASIC METABOLIC PANEL,BMP [CHEM] AM C-REACTIVE PROTEIN [CHEM] AM CBC WITH AUTO DIFF [HEME] AM MAGNESIUM [CHEM] Routine - Assessment Assessment:: COPD Exacerbation Hypokalemia Hypomagnesemia - Plan Plan:: Patient feeling mildly better at rest. Admits still gets short of breath easily with any exertion. Does continue to have tight cough. Is chronically on oxygen at home for COPD. Lung sounds diminished this am. Potassium has improved to 3.5 today, sodium 141. CRP 9.5. Magnesium 2.1 today. Was given IV potassium, IV magnesium yesterday. Will transfer patient to acute inpatient due to dyspnea. Continue IV Levaquin, steroids and nebs. Follow electrolytes. Potassium oral dose increased to TID. 08-18-2019 Patient stable. Does not yet feel her breathing is back to her baseline. Gets short of breath yet with minimal activity and cough. Still tight and wheezy. Labs are stable. WBC up slightly at 11.6, likely some response to steroids as CRP is improving, now 3.9. Potassium and magnesium remain stable yet at 3.5 and 2.0. Will continue with levaquin, steroids and nebs. Repeat labs in am. Start oral magnesium. Probable discharge in am.
[2019-08-18] MEDS: Enoxaparin 30 MG/0.3 ML Syringe SUBCUT SCH (16:08)
[2019-08-18] MEDS: Levofloxacin/Dextrose 5%-Water 500 MG in Premix Bag 1 BAG IV SCH (19:39)
[2019-08-19] MEDS: Pantoprazole 40 MG Tab.CR PO SCH (06:54)
[2019-08-19] MEDS ORDERED: Pantoprazole 40 MG Tab.CR ONE (06:59)
[2019-08-19] MEDS: Potassium Chloride 10 MEQ Tab.ER PO SCH ×2 (07:34→11:39)
[2019-08-19] MEDS: Torsemide 20 MG Tab PO SCH (07:34)
[2019-08-19] MEDS: Albuterol/Ipratropium 3.0-0.5 MG/3 ML Neb Soln NEB SCH ×2 (07:34→11:40)
[2019-08-19] MEDS: Acetaminophen 500 MG Tab PO PRN (07:34)
[2019-08-19] MEDS: methylPREDNISolone Sodium Succinate 125 MG/2 ML SDV IVPUSH SCH (07:35)
[2019-08-19] MEDS ORDERED: Potassium Chloride 10 MEQ Tab.ER ONE (07:36)
[2019-08-19] MEDS: ARFORMOTEROL 15 MCG INH SCH (07:37)
[2019-08-19 11:44] VITALS: BP 141/60; PULSE 77
--- NOTE | 2019-08-19 13:24 | PCM.DCSUM1 ---
Discharge Summary - Hospital Course Free Text/Narrative:: Patient presented to clinic to see Dr. Chakraborty with 6 day history of cold symptoms. Notes increased sinus congestion, sore throat, shortness of breath and wheezing. Cough had been persistent and moist. Having a difficult time resting due to cough. No fevers. Appetite has been fair. Notes increased dyspnea with exertion in comparison to her norm. Has been using nebs and Brovana like scheduled due to chronic history of COPD. Admitted for labs, chest xray, IV Levaquin and steroids. Diagnosis: Stroke: No Modified [place] Scale: No Symptoms at All Modified [place] Scale Score: 0 - Discharge Data Discharge Date: 08/19/19 Discharge Disposition: Home, Self-Care 01 Condition: Fair - Referral to Home Health Primary Care Physician: Vince Chakraborty MD - Discharge Diagnosis/Problem(s) (1) COPD exacerbation SNOMED Code(s): 977099970 ICD Code: J44.1 - CHRONIC OBSTRUCTIVE PULMONARY DISEASE W (ACUTE) EXACERBATION Status: Acute Priority: High (2) Hypokalemia SNOMED Code(s): 28689380 ICD Code: E87.6 - HYPOKALEMIA Status: Acute Priority: High (3) Hypomagnesemia SNOMED Code(s): 732376976 ICD Code: E83.42 - HYPOMAGNESEMIA Status: Acute Priority: High - Patient Summary/Data Complications: none Consults: Consultations 08/16/19 15:05 Respiratory Care Assess and Treatment [CONS] Routine Hospital Course: Patient is feeling somewhat better, asking to be discharged home for the weekend. Does feel she is better able to tolerate activity for short periods. Cough productive at times, harsh but feels improved. Sputum positive for e coli , sensitive to Levaquin. Oxygen sats are stable on 2-3 liters as she is chronically on oxygen at home. Appetite is good. Afebrile. Labs are stable now. Potassium was low at 2.9 on admit, was given potassium IV. Increased her usual dose from BID to TID. Magnesium was low at 1.6, was given 2 gm of Mag Sulfate and started on oral dose daily. WBC 12.1, likely increased from steroids as CRP has improved from 11.9 to now 1.8. Will discharge home on Levaquin and prednisone. Continue nebs and Brovana. Oxygen as needed. Follow up with Dr. Chakraborty in 10 days. - Patient Instructions Diet: Usual Diet as Tolerated Activity: As Tolerated Showering/Bathing: No Showering - Discharge Plan *PRESCRIPTION DRUG MONITORING PROGRAM REVIEWED*: No *COPY OF PRESCRIPTION DRUG MONITORING REPORT IN PATIENT KATELYN: No Prescriptions/Med Rec: Albuterol/Ipratropium [DuoNeb 3.0-0.5 MG/3 ML] 3 ml NEB QIDRT #1 box Levofloxacin [Levaquin] 500 mg PO DAILY #10 tablet Potassium Chloride [Klor-Con 10] 20 meq PO TIDMEALS #90 tab.er predniSONE [Prednisone] 20 mg PO DAILY #10 tablet Home Medications: Home Meds Acetaminophen [Tylenol Extra Strength] 1,000 mg PO ASDIRECTED PRN 09/02/18 [ History] Albuterol [Ventolin HFA] 1 puff INH Q6HR PRN 09/02/18 [History] Arformoterol [Brovana] 1 each INH BID 09/02/18 [History] Magnesium 200 mg PO DAILY 09/02/18 [History] Omeprazole 20 mg PO DAILY 09/02/18 [History] Torsemide 20 mg PO DAILY 09/02/18 [History] Albuterol/Ipratropium [DuoNeb 3.0-0.5 MG/3 ML] 3 ml NEB QIDRT #1 box 08/19/19 [ Rx] Levofloxacin [Levaquin] 500 mg PO DAILY #10 tablet 08/19/19 [Rx] Potassium Chloride [Klor-Con 10] 20 meq PO TIDMEALS #90 tab.er 08/19/19 [Rx] predniSONE [Prednisone] 20 mg PO DAILY #10 tablet 08/19/19 [Rx] Patient Handouts: Chronic Obstructive Pulmonary Disease Exacerbation, Hypomagnesemia, Hypokalemia Referrals: Vince Chakraborty MD [Primary Care Provider] - (Follow up in [address] Chakraborty) - Discharge Summary/Plan Comment DC Time >30 min.: No - General Info Date of Service: 08/19/19 Admission Dx/Problem (Free Text: COPD Exacerbation Hypokalemia Hypomagnesemia Functional Status: Reports: Pain Controlled, Tolerating Diet, Ambulating - Review of Systems General: Reports: Weakness, Fatigue. Denies: Fever HEENT: Reports: Rhinitis Pulmonary: Reports: Shortness of Breath, Cough, Sputum Cardiovascular: Denies: Chest Pain, Edema, Lightheadedness Gastrointestinal: Denies: Abdominal Pain, Nausea, Vomiting Genitourinary: Reports: No Symptoms Musculoskeletal: Reports: No Symptoms Skin: Reports: No Symptoms Neurological: Reports: No Symptoms - Patient Data Vitals - Most Recent: Last Vital Signs Temp 98.3 F 08/19/19 11:43 Pulse 77 08/19/19 11:43 Resp 18 08/19/19 11:43 BP 141/60 H 08/19/19 11:43 Pulse Ox 95 08/19/19 11:43 Weight - Most Recent: 147 lb 11.2 oz Lab Results - Last 24 hrs: Laboratory Results - last 24 hr 08/19/19 08/19/19 Range/Units 05:11 07:00 WBC 12.1 H (5.0-10.0) 10^3/uL RBC 3.80 L (4.00-5.50) 10^6/uL Hgb 11.1 L (12.0-16.0) g/dL Hct 34.9 L (37.0-47.0) % MCV 91.8 (82.0-94.0) fL MCH 29.2 (27.0-32.0) pg MCHC 31.8 L (33.0-38.0) g/dL RDW Coeff of Vivek 12.6 (11.0-15.0) % Plt Count 332 (150-400) 10^3/uL Neut % (Auto) 71.2 (35-85) % Lymph % (Auto) 20.7 (10-55) % [place] % (Auto) 8.1 (0-16) % Eos % (Auto) 0 (0-5) % Baso % (Auto) 0 (0-3) % Neut # (Auto) 8.64 H (1.80-7.00) 10^3/uL Lymph # (Auto) 2.51 (1.00-4.80) 10^3/uL [place] # (Auto) 0.98 H (0.00-0.80) 10^3/uL Eos # (Auto) 0.00 (0.00-0.45) 10^3/uL Baso # (Auto) 0.00 10^3/uL Sodium 144 (136-145) mEq/L Potassium 4.0 (3.5-5.0) mEq/L Chloride 103 (98-106) mEq/L Carbon Dioxide 35 H (21-32) mmol/L BUN 19 H (7-18) mg/dL Creatinine 1.0 (0.6-1.0) mg/dL Est Cr Clr Drug Dosing 34.90 mL/min Estimated GFR (MDRD) 53 L (>=60) mL/min Glucose 120 H (75-99) mg/dL Calcium 8.7 (8.4-10.1) mg/dL Magnesium 2.0 (1.8-2.4) mg/dL C-Reactive Protein 1.8 H (0.2-0.8) mg/dL MARGARITO Results - Last 24 hrs: Microbiology 08/16/19 17:45 Gram Stain - Final Sputum - Expectorated Sputum Culture - Final Escherichia Coli Med Orders - Current: Current Medications Discontinued Medications Acetaminophen (Tylenol) 650 mg PO Q4H PRN PRN Reason: Pain (Mild 1-3)/fever Acetaminophen (Tylenol Extra Strength) 1,000 mg PO Q6H PRN PRN Reason: Pain Last Admin: 08/19/19 07:34 Dose: 1,000 mg Albuterol/Ipratropium (Duoneb 3.0-0.5 Mg/3 Ml) 3 ml NEB QIDRT [facility] Last Admin: 08/19/19 11:40 Dose: 3 ml Enoxaparin Sodium (Lovenox) 30 mg SUBCUT Q24H [facility] Last Admin: 08/18/19 16:08 Dose: 30 mg Levofloxacin/Dextrose 500 mg/ (Premix) 100 mls @ 100 mls/hr IV Q24H [facility] Last Admin: 08/16/19 16:38 Dose: 100 mls/hr Potassium Chloride 40 meq/ (Premix) 100 mls @ 25 mls/hr IV ONETIME ONE Stop: 08/16/19 19:52 Last Admin: 08/16/19 16:11 Dose: 25 mls/hr Levofloxacin/Dextrose 500 mg/ (Premix) 100 mls @ 100 mls/hr IV DAILY@2000 [facility] Last Admin: 08/18/19 19:39 Dose: 100 mls/hr Sodium Chloride (Normal Saline) 250 mls @ 75 mls/hr IV ASDIRECTED [facility] Stop: 08/16/19 21:04 Last Admin: 08/16/19 18:04 Dose: 75 mls/hr Magnesium Sulfate/Dextrose 2 (gm/ Premix) 200 mls @ 100 mls/hr IV ONETIME ONE Stop: 08/16/19 22:41 Last Admin: 08/16/19 21:38 Dose: 100 mls/hr Magnesium Oxide (Magnesium Oxide) 250 mg PO DAILY [facility] Last Admin: 08/17/19 09:23 Dose: Not Given Magnesium Oxide (Magnesium Oxide) 250 mg PO DAILY [facility] Last Admin: 08/19/19 07:34 Dose: 250 mg Magnesium Oxide (Magnesium Oxide) Confirm Administered Dose 250 mg .ROUTE .STK- MED ONE Stop: 08/18/19 07:43 Last Admin: 08/18/19 08:33 Dose: Not Given Magnesium Oxide (Magnesium Oxide) Confirm Administered Dose 250 mg .ROUTE .STK- MED ONE Stop: 08/19/19 07:37 Last Admin: 08/19/19 07:33 Dose: Not Given Methylprednisolone Sodium Succinate (Solu-Medrol) 62.5 mg IVPUSH BID@0800,1600 [facility] Last Admin: 08/19/19 07:35 Dose: 62.5 mg Patients Own (Magnesium 200mg) 0 each PO DAILY [facility] Last Admin: 08/17/19 08:27 Dose: 1 each Patients Own (Omeprazole 20mg) 0 each PO ACBREAKFAST [facility] Last Admin: 08/17/19 07:02 Dose: 20 each Patients Own Kcl 20 (Meq) 0 each PO BIDMEALS [facility] Last Admin: 08/17/19 08:27 Dose: 1 each Patients Own Brovana (15 Mcg) 0 each INH BIDRT [facility] Last Admin: 08/17/19 08:26 Dose: 1 each Ownmed (Omeprazole 20mg Cap) 1 each PO ACBREAKFAST [facility] Ownmed Brovana (15 Mcg Nebule) 1 each INH BIDRT [facility] Last Admin: 08/19/19 07:37 Dose: 1 each Pantoprazole Sodium (Protonix) 40 mg PO ACBREAKFAST [facility] Last Admin: 08/19/19 06:54 Dose: 40 mg Pantoprazole Sodium (Protonix) Confirm Administered Dose 40 mg .ROUTE .STK- MED ONE Stop: 08/18/19 06:33 Last Admin: 08/18/19 06:47 Dose: Not Given Pantoprazole Sodium (Protonix) Confirm Administered Dose 40 mg .ROUTE .STK- MED ONE Stop: 08/19/19 07:00 Last Admin: 08/19/19 06:55 Dose: Not Given Potassium Chloride (Klor-Con 10) 20 meq PO TIDMEALS [facility] Last Admin: 08/19/19 11:39 Dose: 20 meq Potassium Chloride (Klor-Con 10) Confirm Administered Dose 20 meq .ROUTE .STK- MED ONE Stop: 08/18/19 07:43 Last Admin: 08/18/19 08:33 Dose: Not Given Potassium Chloride (Klor-Con 10) Confirm Administered Dose 20 meq .ROUTE .[employer]- MED ONE Stop: 08/18/19 17:42 Last Admin: 08/18/19 18:11 Dose: Not Given Potassium Chloride (Klor-Con 10) Confirm Administered Dose 20 meq .ROUTE .[employer]- MED ONE Stop: 08/19/19 07:37 Last Admin: 08/19/19 07:33 Dose: Not Given Sodium Chloride (Saline Flush) 10 ml FLUSH ASDIRECTED PRN PRN Reason: Keep Vein Open Temazepam (Restoril) 15 mg PO BEDTIME PRN PRN Reason: Sleep Torsemide (Demadex) 20 mg PO DAILY [facility] Last Admin: 08/17/19 08:26 Dose: 20 mg Torsemide (Demadex) 20 mg PO DAILY [facility] Last Admin: 08/19/19 07:34 Dose: 20 mg - Exam Quality Assessment: Reports: Supplemental Oxygen General: Reports: Alert, Oriented HEENT: Reports: Mucous Membr. Moist/[place] Neck: Reports: Supple Lungs: Reports: Decreased Breath Sounds Cardiovascular: Reports: Regular Rate, Regular Rhythm GI/Abdominal Exam: Normal Bowel Sounds, Soft, Non-Tender Extremities: Normal Inspection, No Pedal Edema Skin: Reports: Warm, Dry Neurological: Reports: No New Focal Deficit
== END 2019-08-19 13:10 | disposition home or self-care (01) | DRG 192 ==
LOC: CC.MS 14:00 → UNDOADMOB 14:00 → INTOOBSV 08-17 09:05 → OBSVTOIN 08-17 09:05 → CC.MS 08-17 09:05
PROVIDERS: ADMIT Family Medicine; ATTEND Family Medicine
DX: J44.1 Chronic obstructive pulmonary disease with (acute) exacerbation (principal); E87.6 Hypokalemia; E83.42 Hypomagnesemia; R53.1 Weakness; R06.02 Shortness of breath; J02.9 Acute pharyngitis, unspecified; R05 Cough; Z99.81 Dependence on supplemental oxygen; H81.10 Benign paroxysmal vertigo, unspecified ear; K21.9 Gastro-esophageal reflux disease without esophagitis; E78.5 Hyperlipidemia, unspecified; Z87.891 Personal history of nicotine dependence; M81.8 Other osteoporosis without current pathological fracture; B96.20 Unspecified Escherichia coli [E. coli] as the cause of diseases classified elsewhere; Z88.8 Allergy status to other drugs, medicaments and biological substances; Z79.52 Long term (current) use of systemic steroids; Z79.899 Other long term (current) drug therapy; Z98.49 Cataract extraction status, unspecified eye
CPT/HCPCS: 36415; 71046; 80048; 83735; 85025; 86140; 87070; 87077; 87186; 87205; 94640; 96365; 96366; 96367; 96368; 96372; 96375; 96376; 99220; A9270-GY; G0378; J1650; J1956; J2930; J3475; J3480; J7050; J7620-GY

== ENCOUNTER 2021-07-23 04:49 | Inpatient (IN) | payer MEDICARE, BC ==
[2021-07-23] MEDS ORDERED: methylPREDNISolone Sodium Succinate 125 MG/2 ML SDV IVPUSH ONE (05:04)
[2021-07-23] MEDS ORDERED: Levalbuterol HCl 1.25 MG/3 ML Neb NEB ONE ×2 (05:10→05:27)
--- NOTE | 2021-07-23 05:22 | EDM.PDOC ---
ED HPI GENERAL MEDICAL PROBLEM - General Chief Complaint: Respiratory Problem Stated Complaint: shortness of breath Time Seen by Provider: 07/23/21 04:52 Source of Information: Reports: Patient History Limitations: Reports: Respiratory Distress - History of Present Illness INITIAL COMMENTS - FREE TEXT/NARRATIVE: Bambi is an 81 year old female who presents to ER with complaints of increased shortness of breath, worsening over the last 3 days. History of COPD, does use nebulizers at home and has been compliant with them. Has exposed to URIs in her family, no covid exposure that she is aware of. Admits to sinus congestion and pressure. Mild sore throat. No ear pain. Has been having intermittent chest pains for many days, mostly occurring at night. Feels like a tightness in her chest. No fevers. No nausea or vomiting, no abdominal pain. Has not been eating or drinking well for the last few days. Very significant activity intolerance. Onset: Gradual Duration: Day(s):, Getting Worse Location: Reports: Chest Severity: Mild Improves with: Reports: Rest Worsens with: Reports: Movement Associated Symptoms: Reports: Chest Pain, Cough, cough w sputum, Diaphoresis, Loss of Appetite, Malaise, Shortness of Breath, Weakness. Denies: Confusion, Fever/Chills, Headaches, Nausea/Vomiting Treatments LOAN MANAGER: Reports: Other (see below) Other Treatments LOAN MANAGER: HOME OXYGEN 2 LITERS - Related Data Allergies Allergy/AdvReac Type Severity Reaction Status Date / Time budesonide Allergy Cough Verified 07/23/21 04:58 roflumilast [From Daliresp] Allergy Nausea Verified 07/23/21 04:58 Home Meds: Home Meds Acetaminophen [Tylenol Extra Strength] 1,000 mg PO ASDIRECTED PRN 09/02/18 [History] Albuterol [Ventolin HFA] 1 puff INH Q6HR PRN 09/02/18 [History] Omeprazole 20 mg PO DAILY 09/02/18 [History] Torsemide 20 mg PO DAILY 09/02/18 [History] Albuterol/Ipratropium [DuoNeb 3.0-0.5 MG/3 ML] 3 ml NEB QIDRT #1 box 08/19/19 [Rx] Potassium Chloride [Klor-Con 10] 20 meq PO TIDMEALS #90 tab.er 08/19/19 [Rx] Cholecalciferol (Vitamin D3) [Vitamin D] 5,000 units PO DAILY 07/23/21 [History] Montelukast [Singulair] 10 mg PO DAILY 07/23/21 [History] Past Medical History Cardiovascular History: Reports: High Cholesterol, SOB on Exertion Respiratory History: Reports: Asthma, COPD Other Respiratory History: says she was diagnosed with COPD several years ago; went to 12 sessions of pulmonary rehab in [place]--attended 12 sessions there. Said she used the treadmill and bike in [place]. 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 saw Dr. Chakraborty last week for a followup appt. PFT's done on 08-10-18: FEV1 35%, pre FEV1/FVC pre 49---Severe COPD Gastrointestinal History: Reports: GERD Musculoskeletal History: Reports: Arthritis, Osteoporosis - Past Surgical History GI Surgical History: Reports: Cholecystectomy Other Musculoskeletal Surgeries/Procedures:: says she has back problems Social & Family History - Family History Family Medical History: No Pertinent Family History - Tobacco Use Tobacco Use Status *Q: Former Tobacco User - Caffeine Use Caffeine Use: Reports: Soda ED ROS GENERAL - Review of Systems Review Of Systems: See Below Constitutional: Reports: Malaise, Weakness, Fatigue, Decreased Appetite. Denies: Fever, Chills HEENT: Reports: Rhinitis, Sinus Problem. Denies: Ear Pain, Throat Pain Respiratory: Reports: Shortness of Breath, Wheezing, Cough, Sputum Cardiovascular: Reports: Chest Pain. Denies: Edema, Lightheadedness Endocrine: Reports: Fatigue GI/Abdominal: Denies: Abdominal Pain, Diarrhea, Nausea, Vomiting : Reports: No Symptoms Musculoskeletal: Reports: No Symptoms Skin: Reports: No Symptoms Neurological: Reports: Weakness ED EXAM, GENERAL - Physical Exam Exam: See Below Exam Limited By: Respiratory Distress General Appearance: Alert, Moderate Distress Ears: Normal External Exam, Normal TMs Nose: Normal Inspection, Normal Mucosa, Nasal Drainage Throat/Mouth: Normal Inspection, Normal Oropharynx, Other (mucous membranes dry) Head: Normocephalic Neck: Normal Inspection, Supple, Non-Tender Respiratory/Chest: Respiratory Distress, Decreased Breath Sounds, Wheezing Cardiovascular: Tachycardia GI/Abdominal: Normal Bowel Sounds, Soft, Non-Tender Extremities: Normal Inspection, No Pedal Edema Neurological: Alert Skin Exam: Warm, Other (clammy) Course - Vital Signs Last Recorded V/S: Last Vital Signs Temp 98.5 F 07/23/21 05:19 Pulse 129 H 07/23/21 05:19 Resp 30 H 07/23/21 05:19 BP 171/90 H 07/23/21 05:19 Pulse Ox 97 07/23/21 05:19 - Orders/Labs/Meds Orders: Active Orders 24 hr Category Date Time Status Patient Status Manage Transfer [TRANSFER] Routine ADT 07/23/21 05:44 Active RT Aerosol Therapy [RC] ASDIRECTED Care 07/23/21 05:10 Active RT Aerosol Therapy [RC] ASDIRECTED Care 07/23/21 05:27 Active Ang Chest [CT] Stat Exams 07/23/21 05:34 Ordered Chest 1V Frontal [CR] Stat Exams 07/23/21 05:31 Taken Chest 2V [CR] Stat Exams 07/23/21 04:51 Stop Req Sodium Chloride 0.9% [Normal Saline] 1,000 ml Med 07/23/21 05:45 Active IV ASDIRECTED Resuscitation Status Routine Resus Stat 07/23/21 05:45 Ordered Medication Orders Sodium Chloride (Normal Saline) 1,000 mls @ 75 mls/hr IV ASDIRECTED SARINA Last Admin: 07/23/21 05:38 Dose: 75 mls/hr Documented by: GIL Labs: Laboratory Tests 07/23/21 07/23/21 07/23/21 Range/Units 04:45 05:00 05:00 WBC 19.5 H (4.0-11.0) 10^3/uL RBC 4.29 (4.00-5.50) x10^6/uL Hgb 12.4 (12.0-16.0) g/dL Hct 39.4 (37.0-47.0) % MCV 91.8 (83.0-97.0) fL MCH 28.9 (27.0-32.0) pg MCHC 31.5 L (32.0-36.0) g/dL RDW Coeff of Vivek 13.4 (11.0-15.0) % Plt Count 278 (150-400) 10^3/uL Add Manual Diff Yes Neutrophils % (Manual) 59 (35-85) % Band Neutrophils % 30 H (0-5) % Lymphocytes % (Manual) 6 L (21-55) % Monocytes % (Manual) 5 (2-12) % D-Dimer, Quantitative 1.78 H (0.00-0.50) Sodium (136-145) mEq/L Potassium (3.5-5.0) mEq/L Chloride (98-106) mEq/L Carbon Dioxide (21-32) mmol/L BUN (7-18) mg/dL Creatinine (0.6-1.0) mg/dL Est Cr Clr Drug Dosing mL/min Estimated GFR (MDRD) (>=60) mL/min Glucose (75-99) mg/dL Calcium (8.4-10.1) mg/dL Magnesium (1.8-2.4) mg/dL Total Bilirubin (0.0-1.0) mg/dL AST (15-37) U/L ALT (12-78) U/L Alkaline Phosphatase (46-116) U/L Lactate Dehydrogenase (100-190) U/L Creatine Kinase (21-215) U/L Troponin I High Sens (<=51) pg/mL C-Reactive Protein (0.2-0.8) mg/dL NT-Pro-B Natriuret Pep (0-1000) pg/mL Total Protein (6.4-8.2) g/dL Albumin (3.4-5.0) g/dL SARS CoV-2 RNA Rapid KING Negative (NEGATIVE) 07/23/21 Range/Units 05:00 WBC (4.0-11.0) 10^3/uL RBC (4.00-5.50) x10^6/uL Hgb (12.0-16.0) g/dL Hct (37.0-47.0) % MCV (83.0-97.0) fL MCH (27.0-32.0) pg MCHC (32.0-36.0) g/dL RDW Coeff of Vivek (11.0-15.0) % Plt Count (150-400) 10^3/uL Add Manual Diff Neutrophils % (Manual) (35-85) % Band Neutrophils % (0-5) % Lymphocytes % (Manual) (21-55) % Monocytes % (Manual) (2-12) % D-Dimer, Quantitative (0.00-0.50) Sodium 144 (136-145) mEq/L Potassium 6.2 H* D (3.5-5.0) mEq/L Chloride 105 (98-106) mEq/L Carbon Dioxide 31 (21-32) mmol/L BUN 26 H D (7-18) mg/dL Creatinine 1.5 H (0.6-1.0) mg/dL Est Cr Clr Drug Dosing 21.44 mL/min Estimated GFR (MDRD) 33 L (>=60) mL/min Glucose 130 H D (75-99) mg/dL Calcium 9.4 (8.4-10.1) mg/dL Magnesium 1.7 L (1.8-2.4) mg/dL Total Bilirubin 0.7 (0.0-1.0) mg/dL AST 19 (15-37) U/L ALT 26 (12-78) U/L Alkaline Phosphatase 143 H (46-116) U/L Lactate Dehydrogenase 291 H (100-190) U/L Creatine Kinase 33 (21-215) U/L Troponin I High Sens 9.7 (<=51) pg/mL C-Reactive Protein 40.0 H (0.2-0.8) mg/dL NT-Pro-B Natriuret Pep 2186 H (0-1000) pg/mL Total Protein 7.7 (6.4-8.2) g/dL Albumin 3.5 (3.4-5.0) g/dL SARS CoV-2 RNA Rapid KING (NEGATIVE) Meds: Medications Generic Name Dose Route Start Last Admin Trade Name Freq PRN Reason Stop Dose Admin Sodium Chloride 1,000 mls @ 75 mls/hr 07/23/21 05:45 07/23/21 05:38 Normal Saline IV 75 mls/hr ASDIRECTED SARINA Administration Discontinued Medications Generic Name Dose Route Start Last Admin Trade Name Freq PRN Reason Stop Dose Admin Furosemide 40 mg 07/23/21 05:33 07/23/21 05:39 Furosemide 40 Mg/4 Ml Vial IVPUSH 07/23/21 05:34 40 mg ONETIME ONE Administration Iopamidol 100 ml 07/23/21 05:46 Iopamidol 755 Mg/Ml 100 Ml Bottle IVPUSH 07/23/21 05:47 ONETIME ONE Levalbuterol HCl 1.25 mg 07/23/21 05:10 07/23/21 05:13 Levalbuterol Hcl 1.25 Mg/3 Ml Neb NEB 07/23/21 05:11 1.25 mg ONETIME ONE Administration Levalbuterol HCl 1.25 mg 07/23/21 05:27 07/23/21 05:30 Levalbuterol Hcl 1.25 Mg/3 Ml Neb NEB 07/23/21 05:28 1.25 mg ONETIME ONE Administration Methylprednisolone Sodium Succinate 125 mg 07/23/21 05:04 07/23/21 05:11 Methylprednisolone Sodium Succinate 125 Mg/2 Ml Sdv IVPUSH 07/23/21 05:05 125 mg STAT ONE Administration Ondansetron HCl 4 mg 07/23/21 05:56 Ondansetron 4 Mg/2 Ml Sdv IVPUSH 07/23/21 05:57 NOW ONE - Re-Assessments/Exams Free Text/Narrative Re-Assessment/Exam: 07/23/21 05:57 Has been given 2 xopenex nebs given, IV Solu Medrol given. Oxygen sats do remain 98-100% on 2.5 liters. Patient states does not feel much better. Did discuss code level with daughter, is a DNR. Labs note high WBC at 19.5, CRP 40. ProBNP 2186. Potassium 6.2. BUN and creatinine slightly higher than norm, creatinine 1.5. IV Normal saline started at 75 ml/hr. Lasix 40 mg IV given. Zofran IV given. At this time, patient unable to lie flat or hold her breath so CTA on hold until able to tolerate. Chest xray appears to have questionable early infiltrate in RLL. Will admit to inpatient, start IV antibiotics, steroids, nebs. Departure - Departure Time of Disposition: 06:01 Disposition: Home, Self-Care 01 Condition: Fair Clinical Impression: Pneumonia, COPD exacerbation, Congestive heart failure - Discharge Information *PRESCRIPTION DRUG MONITORING PROGRAM REVIEWED*: No *COPY OF PRESCRIPTION DRUG MONITORING REPORT IN PATIENT KATELYN: No Sepsis Event Note (ED) - Evaluation Sepsis Screening Result: Possible Sepsis Risk - Focused Exam Vital Signs: Vital Signs Temp Pulse Resp BP Pulse Ox 07/23/21 05:19 98.5 F 129 H 30 H 171/90 H 97 07/23/21 05:04 125 H 44 H 97 07/23/21 04:52 96.3 F L 132 H 32 H 112/91 H 76 L - Problem List & Annotations (1) Hyperkalemia SNOMED Code(s): 07139614 Code(s): E87.5 - HYPERKALEMIA Status: Acute Priority: High Current Visit: Yes (2) COPD exacerbation SNOMED Code(s): 130403229 Code(s): J44.1 - CHRONIC OBSTRUCTIVE PULMONARY DISEASE W (ACUTE) EXACERBATION Status: Acute Priority: High Current Visit: Yes (3) Congestive heart failure SNOMED Code(s): 81318046 Code(s): I50.9 - HEART FAILURE, UNSPECIFIED Status: Acute Priority: High Current Visit: Yes Qualifiers: Heart failure type: systolic Heart failure chronicity: acute on chronic Qualified Code(s): I50.23 - Acute on chronic systolic (congestive) heart failure (4) Pneumonia SNOMED Code(s): 705565796 Code(s): J18.9 - PNEUMONIA, UNSPECIFIED ORGANISM Status: Acute Priority: High Current Visit: Yes Qualifiers: Laterality: right Lung location: lower lobe of lung (5) Palliative care status SNOMED Code(s): 264041499 Code(s): Z51.5 - ENCOUNTER FOR PALLIATIVE CARE Status: Acute Current Visit: Yes - Problem List Review Problem List Initiated/Reviewed/Updated: Yes - My Orders Last 24 Hours: My Active Orders 07/23/21 04:51 Chest 2V [CR] Stat 07/23/21 05:10 RT Aerosol Therapy [RC] ASDIRECTED 07/23/21 05:27 RT Aerosol Therapy [RC] ASDIRECTED 07/23/21 05:31 Chest 1V Frontal [CR] Stat 07/23/21 05:34 Ang Chest [CT] Stat 07/23/21 05:44 Patient Status Manage Transfer [TRANSFER] Routine 07/23/21 05:45 Sodium Chloride 0.9% [Normal Saline] 1,000 ml IV ASDIRECTED Resuscitation Status Routine - Assessment/Plan Admission H&P: Please use this note as an admission H&P Last 24 Hours: My Active Orders 07/23/21 04:51 Chest 2V [CR] Stat 07/23/21 05:10 RT Aerosol Therapy [RC] ASDIRECTED 07/23/21 05:27 RT Aerosol Therapy [RC] ASDIRECTED 07/23/21 05:31 Chest 1V Frontal [CR] Stat 07/23/21 05:34 Ang Chest [CT] Stat 07/23/21 05:44 Patient Status Manage Transfer [TRANSFER] Routine 07/23/21 05:45 Sodium Chloride 0.9% [Normal Saline] 1,000 ml IV ASDIRECTED Resuscitation Status Routine Assessment:: RLL Pneumonia Acute on chronic CHF Exacerbation COPD Exacerbation Hyperkalemia Palliative Care Patient Plan: Admit to inpatient. Nebs, antibiotics.
[2021-07-23] MEDS ORDERED: Furosemide 40 MG/4 ML VIAL IVPUSH ONE (05:33)
[2021-07-23] MEDS ORDERED: Sodium Chloride 0.9% 1,000 ML IV SCH (05:45)
[2021-07-23] MEDS ORDERED: Iopamidol 755 Mg/ML 100 ML Bottle IVPUSH ONE (05:46)
[2021-07-23] MEDS ORDERED: Ondansetron 4 MG/2 ML SDV IVPUSH ONE (05:56)
[2021-07-23] MEDS ORDERED: Acetaminophen 500 MG Tab PO PRN (06:26)
[2021-07-23] MEDS ORDERED: Ondansetron 4 MG/2 ML SDV IV PRN (06:26)
[2021-07-23] MEDS ORDERED: Polyethylene Glycol 3350 Powder 17 GM Packet PO PRN (06:26)
[2021-07-23] MEDS ORDERED: Ondansetron 4 MG Tab.DIS PO PRN (06:26)
[2021-07-23] MEDS ORDERED: Albuterol 8 GM Inhaler INH PRN (06:26)
[2021-07-23] MEDS ORDERED: ALPRAZolam 0.25 MG Tab PO PRN (06:26)
[2021-07-23] MEDS ORDERED: Albuterol 0.083% 2.5 MG/3 ML Neb Soln NEB PRN (06:26)
[2021-07-23] MEDS ORDERED: Levalbuterol HCl 1.25 MG/3 ML Neb NEB SCH (06:26)
[2021-07-23] MEDS: cefTRIAXone 1 GM Vial IVPUSH SCH (07:15)
[2021-07-23] MEDS: Azithromycin 500 MG in Sodium Chloride 0.9% 250 ML IV SCH (07:18)
[2021-07-23] MEDS: Cholecalciferol (Vitamin D3) 25 MCG Tab PO SCH (08:05)
[2021-07-23] MEDS: Montelukast 10 MG Tab PO SCH (08:05)
[2021-07-23] MEDS: Torsemide 20 MG Tab PO SCH (08:05)
[2021-07-23] MEDS: Levalbuterol HCl 1.25 MG/3 ML Neb NEB SCH ×4 (09:28→21:19)
[2021-07-23] MEDS: Acetaminophen 325 MG Tab PO PRN ×2 (09:28→18:21)
--- NOTE | 2021-07-23 11:37 | PN ---
DATE: 07/23/2021 S: Bambi is an 81-year-old female with known advanced COPD requiring O2. She presented to [facility] in the emergency room with respiratory distress over the last 3 or 4 days. She has had no known COVID exposure. [facility] evaluated her, felt she had pneumonia, had a negative COVID test, admitted her for such, started on Rocephin and Zithromax. She did have an elevated D-dimer of almost 2 and I believe a CTA of the chest was ordered, those results are pending. She has been afebrile since admission. Blood pressures are borderline to slightly high. She interestingly did have an elevated proBNP of I believe over 1999 which is new for her, her previous have all been normal. O: GENERAL: Bambi is currently getting a nebulizer. She is working hard to breathe. VITAL SIGNS: Respiratory rate is around 30. NECK: Neck veins are nondistended. LUNGS: Lung sounds are diminished with inspiratory and expiratory wheezing. There may be some fine basilar crackles. CARDIAC: Tones are regular and tachycardic. ABDOMEN: Soft. EXTREMITIES: She has no peripheral edema. DIAGNOSTIC DATA: Chest x-ray was reviewed. She appears to have a likely right lower lobe pneumonia, but she also appears to have some cephalization and signs of some mild CHF. Lab work is reviewed. The patient is hyperkalemic. ASSESSMENT: 1. PNEUMONIA. 2. ADVANCED CHRONIC OBSTRUCTIVE PULMONARY DISEASE WITH EXACERBATION. 3. HYPERKALEMIA. 4. NEW CONGESTIVE HEART FAILURE. 5. HYPOTHYROIDISM. P: The patient has been given IV Lasix. I will stop her IV fluids and saline lock her. She is currently on Rocephin and Zithromax which we will continue for now. CTA of the chest is pending. Discussion with [facility], the patient's admitting provider and the patient. She is a DNR and code level 2. There was discussion on transfer, but all beds are full and she desires to stay here at this point. RUDOLPH/HUMBERTO /[id number]
[2021-07-23] MEDS: guaiFENesin 200 MG Tab PO SCH ×2 (14:35→19:29)
[2021-07-23] MEDS: methylPREDNISolone Sodium Succinate 125 MG/2 ML SDV IVPUSH SCH (19:29)
[2021-07-23] MEDS: Enoxaparin 30 MG/0.3 ML Syringe SUBCUT SCH (19:29)
[2021-07-24] MEDS: Levalbuterol HCl 1.25 MG/3 ML Neb NEB SCH ×7 (00:28→23:39)
[2021-07-24] MEDS: Azithromycin 500 MG in Sodium Chloride 0.9% 250 ML IV SCH (06:44)
[2021-07-24] MEDS: cefTRIAXone 1 GM Vial IVPUSH SCH (06:44)
[2021-07-24] MEDS: methylPREDNISolone Sodium Succinate 125 MG/2 ML SDV IVPUSH SCH ×2 (07:54→19:36)
[2021-07-24] MEDS: Torsemide 20 MG Tab PO SCH (07:58)
[2021-07-24] MEDS: Acetaminophen 325 MG Tab PO PRN (07:58)
[2021-07-24] MEDS: Cholecalciferol (Vitamin D3) 25 MCG Tab PO SCH (07:58)
[2021-07-24] MEDS: Montelukast 10 MG Tab PO SCH (07:58)
[2021-07-24] MEDS: guaiFENesin 200 MG Tab PO SCH ×3 (07:58→19:36)
[2021-07-24] MEDS ORDERED: Ibuprofen 200 MG Tab PO PRN (10:41)
[2021-07-24] MEDS ORDERED: VANCOmycin 1 GM/200 ML 1 GM in Premix Bag 1 BAG IV SCH (11:30)
--- NOTE | 2021-07-24 18:05 | PCM.PN ---
- General Info Date of Service: 07/24/21 Admission Dx/Problem (Free Text): RLL PNeumonia COPD Exacerbation New onset CHF Subjective Update: Bamib is resting more comfortably today. Does still appear tachypneic but improved. Patient herself relates does not feel much better. Does have a sign ificant headache that is concerning to her. Still very short of breath with minimal activity tolerance. Is able to converse more easily now. Oxygen sats still remain excellent on 2 1/2 liters. Is eating Functional Status: Reports: Tolerating Diet (Is eating better today). Denies: Pain Controlled (complaining of significant headache ) - Review of Systems General: Reports: Weakness, Fatigue, Malaise HEENT: Reports: Headaches Pulmonary: Reports: Shortness of Breath, Cough, Sputum Cardiovascular: Denies: Chest Pain, Lightheadedness Gastrointestinal: Denies: Abdominal Pain, Nausea, Vomiting Genitourinary: Reports: No Symptoms Musculoskeletal: Reports: No Symptoms Skin: Reports: No Symptoms Neurological: Reports: Headache, Weakness - Patient Data Vitals - Most Recent: Last Vital Signs Temp 97.9 F 07/24/21 16:00 Pulse 117 H 07/24/21 16:00 Resp 24 H 07/24/21 16:00 BP 115/68 07/24/21 16:00 Pulse Ox 96 07/24/21 16:00 Weight - Most Recent: 122 lb 14.4 oz Lab Results Last 24 Hours: Laboratory Results - last 24 hr 07/24/21 07/24/21 Range/Units 07:00 07:00 WBC 8.3 (4.0-11.0) 10^3/uL RBC 3.83 L (4.00-5.50) x10^6/uL Hgb 11.0 L (12.0-16.0) g/dL Hct 35.0 L (37.0-47.0) % MCV 91.4 (83.0-97.0) fL MCH 28.7 (27.0-32.0) pg MCHC 31.4 L (32.0-36.0) g/dL RDW Coeff of Vivek 13.6 (11.0-15.0) % Plt Count 304 (150-400) 10^3/uL Immature Gran % (Auto) 0.2 (0.0-4.9) % Neut % (Auto) 90.8 H (41-71) % Lymph % (Auto) 6.9 L (24-44) % [place] % (Auto) 2.1 (0-10) % Eos % (Auto) 0.0 (0-6) % Baso % (Auto) 0.0 (0-1) % Neut # (Auto) 7.52 (1.80-8.00) x10^3/uL Lymph # (Auto) 0.57 L (0.60-5.00) 10^3/uL [place] # (Auto) 0.17 (0.00-1.50) 10^3/uL Eos # (Auto) 0.00 (0.00-1.50) 10^3/uL Baso # (Auto) 0.00 (0.00-0.50) 10^3/uL Immature Gran # (Auto) 0.02 (0.00-0.49) 10^3/uL Sodium 146 H (136-145) mEq/L Potassium 4.6 (3.5-5.0) mEq/L Chloride 102 (98-106) mEq/L Carbon Dioxide 35 H (21-32) mmol/L BUN 35 H (7-18) mg/dL Creatinine 1.6 H (0.6-1.0) mg/dL Est Cr Clr Drug Dosing 20.10 mL/min Estimated GFR (MDRD) 31 L (>=60) mL/min Glucose 153 H (75-99) mg/dL Calcium 8.8 (8.4-10.1) mg/dL C-Reactive Protein 33.9 H (0.2-0.8) mg/dL Ludin Results Last 24 Hours: Microbiology 07/23/21 08:37 Gram Stain - Final Sputum - Expectorated Sputum Culture - Preliminary Gram Positive Cocci Gram Negative Rods Med Orders - Current: Current Medications Acetaminophen (Acetaminophen 325 Mg Tab) 650 mg PO Q4H PRN PRN Reason: Pain (Mild 1-3)/fever Last Admin: 07/24/21 07:58 Dose: 650 mg Documented by: Albuterol (Albuterol 0.083% 2.5 Mg/3 Ml Neb Soln) 2.5 mg NEB Q4H PRN PRN Reason: Dyspnea Albuterol (Albuterol 8 Gm Inhaler) 0 gm INH Q6H PRN PRN Reason: Shortness of Breath Alprazolam (Alprazolam 0.25 Mg Tab) 0.25 mg PO Q6H PRN PRN Reason: Anxiety Ceftriaxone Sodium (Ceftriaxone 1 Gm Vial) 1 gm IVPUSH Q24H [facility] Cholecalciferol (Cholecalciferol (Vitamin D3) 25 Mcg Tab) 125 mcg PO DAILY [facility] Last Admin: 07/24/21 07:58 Dose: 125 mcg Documented by: Enoxaparin Sodium (Enoxaparin 30 Mg/0.3 Ml Syringe) 30 mg SUBCUT BEDTIME [facility] Last Admin: 07/23/21 19:29 Dose: 30 mg Documented by: Guaifenesin (Guaifenesin 200 Mg Tab) 200 mg PO TID [facility] Last Admin: 07/24/21 14:21 Dose: 200 mg Documented by: Vancomycin HCl 1 gm/ Premix 200 mls @ 200 mls/hr IV Q24H [facility] Last Admin: 07/24/21 11:32 Dose: 200 mls/hr Documented by: Azithromycin 500 mg/ Sodium (Chloride) 250 mls @ 250 mls/hr IV Q24H [facility] Ibuprofen (Ibuprofen 200 Mg Tab) 400 mg PO Q6H PRN PRN Reason: Pain Last Admin: 07/24/21 11:08 Dose: 400 mg Documented by: Levalbuterol HCl (Levalbuterol Hcl 1.25 Mg/3 Ml Neb) 1.25 mg NEB Q4H [facility] Last Admin: 07/24/21 16:08 Dose: 1.25 mg Documented by: Methylprednisolone Sodium Succinate (Methylprednisolone Sodium Succinate 125 Mg/2 Ml Sdv) 125 mg IVPUSH Q12H [facility] Last Admin: 07/24/21 07:54 Dose: 125 mg Documented by: Montelukast Sodium (Montelukast 10 Mg Tab) 10 mg PO DAILY [facility] Last Admin: 07/24/21 07:58 Dose: 10 mg Documented by: Ondansetron HCl (Ondansetron 4 Mg Tab.Dis) 4 mg PO Q4H PRN PRN Reason: nausea, able to take PO Ondansetron HCl (Ondansetron 4 Mg/2 Ml Sdv) 4 mg IV Q4H PRN PRN Reason: Nausea/Vomiting Polyethylene Glycol (Polyethylene Glycol 3350 Powder 17 Gm Packet) 17 gm PO DAILY PRN PRN Reason: Constipation Torsemide (Torsemide 20 Mg Tab) 20 mg PO DAILY [facility] Last Admin: 07/24/21 07:58 Dose: 20 mg Documented by: Vancomycin HCl (Pharmacy To Dose - Vancomycin) 1 dose .XX ASDIRECTED SARINA Discontinued Medications Acetaminophen (Acetaminophen 500 Mg Tab) 1,000 mg PO ASDIRECTED PRN PRN Reason: Pain Ceftriaxone Sodium (Ceftriaxone 1 Gm Vial) 1 gm IVPUSH Q24H [facility] Last Admin: 07/24/21 06:44 Dose: 1 gm Documented by: Furosemide (Furosemide 40 Mg/4 Ml Vial) 40 mg IVPUSH ONETIME ONE Stop: 07/23/21 05:34 Last Admin: 07/23/21 05:39 Dose: 40 mg Documented by: Sodium Chloride (Normal Saline) 1,000 mls @ 50 mls/hr IV ASDIRECTED [facility] Last Admin: 07/23/21 05:38 Dose: 75 mls/hr Documented by: Azithromycin 500 mg/ Sodium (Chloride) 250 mls @ 250 mls/hr IV Q24H [facility] Last Admin: 07/24/21 06:44 Dose: 250 mls/hr Documented by: Iopamidol (Iopamidol 755 Mg/Ml 100 Ml Bottle) 100 ml IVPUSH ONETIME ONE Stop: 07/23/21 05:47 Last Admin: 07/23/21 09:08 Dose: 100 ml Documented by: Levalbuterol HCl (Levalbuterol Hcl 1.25 Mg/3 Ml Neb) 1.25 mg NEB ONETIME ONE Stop: 07/23/21 05:11 Last Admin: 07/23/21 05:13 Dose: 1.25 mg Documented by: Levalbuterol HCl (Levalbuterol Hcl 1.25 Mg/3 Ml Neb) 1.25 mg NEB ONETIME ONE Stop: 07/23/21 05:28 Last Admin: 07/23/21 05:30 Dose: 1.25 mg Documented by: Levalbuterol HCl (Levalbuterol Hcl 1.25 Mg/3 Ml Neb) 1.25 mg NEB Q4H [facility] Last Admin: 07/23/21 07:06 Dose: Not Given Documented by: Methylprednisolone Sodium Succinate (Methylprednisolone Sodium Succinate 125 Mg/2 Ml Sdv) 125 mg IVPUSH STAT ONE Stop: 07/23/21 05:05 Last Admin: 07/23/21 05:11 Dose: 125 mg Documented by: Ondansetron HCl (Ondansetron 4 Mg/2 Ml Sdv) 4 mg IVPUSH NOW ONE Stop: 07/23/21 05:57 Last Admin: 07/23/21 05:59 Dose: 4 mg Documented by: - Exam Quality Assessment: Supplemental Oxygen General: Alert, Oriented HEENT: Mucous Membr. Moist/[place] Neck: Supple Lungs: Decreased Breath Sounds, Rales (RLL) Cardiovascular: Regular Rate, Regular Rhythm GI/Abdominal Exam: Normal Bowel Sounds, Soft, Non-Tender Extremities: Normal Inspection, No Pedal Edema Skin: Warm, Dry Neurological: No New Focal Deficit - Patient Data Lab Results Last 24 hrs: Laboratory Results - last 24 hr 07/24/21 07/24/21 Range/Units 07:00 07:00 WBC 8.3 (4.0-11.0) 10^3/uL RBC 3.83 L (4.00-5.50) x10^6/uL Hgb 11.0 L (12.0-16.0) g/dL Hct 35.0 L (37.0-47.0) % MCV 91.4 (83.0-97.0) fL MCH 28.7 (27.0-32.0) pg MCHC 31.4 L (32.0-36.0) g/dL RDW Coeff of Vivek 13.6 (11.0-15.0) % Plt Count 304 (150-400) 10^3/uL Immature Gran % (Auto) 0.2 (0.0-4.9) % Neut % (Auto) 90.8 H (41-71) % Lymph % (Auto) 6.9 L (24-44) % [place] % (Auto) 2.1 (0-10) % Eos % (Auto) 0.0 (0-6) % Baso % (Auto) 0.0 (0-1) % Neut # (Auto) 7.52 (1.80-8.00) x10^3/uL Lymph # (Auto) 0.57 L (0.60-5.00) 10^3/uL [place] # (Auto) 0.17 (0.00-1.50) 10^3/uL Eos # (Auto) 0.00 (0.00-1.50) 10^3/uL Baso # (Auto) 0.00 (0.00-0.50) 10^3/uL Immature Gran # (Auto) 0.02 (0.00-0.49) 10^3/uL Sodium 146 H (136-145) mEq/L Potassium 4.6 (3.5-5.0) mEq/L Chloride 102 (98-106) mEq/L Carbon Dioxide 35 H (21-32) mmol/L BUN 35 H (7-18) mg/dL Creatinine 1.6 H (0.6-1.0) mg/dL Est Cr Clr Drug Dosing 20.10 mL/min Estimated GFR (MDRD) 31 L (>=60) mL/min Glucose 153 H (75-99) mg/dL Calcium 8.8 (8.4-10.1) mg/dL C-Reactive Protein 33.9 H (0.2-0.8) mg/dL Result Diagrams: 07/24/21 07:00 07/24/21 07:00 Ludin Results Last 24 hrs: Microbiology 07/23/21 08:37 Gram Stain - Final Sputum - Expectorated Sputum Culture - Preliminary Gram Positive Cocci Gram Negative Rods Sepsis Event Note - Evaluation Sepsis Screening Result: Possible Sepsis Risk - Focused Exam Vital Signs: Vital Signs Temp Pulse Resp BP Pulse Ox Pulse Ox 07/24/21 16:00 97.9 F 117 H 24 H 115/68 96 96 07/24/21 12:00 97 F 89 26 H 110/49 L 99 07/24/21 07:56 97 F 100 28 H 114/61 98 - Problem List & Annotations (1) Hyperkalemia SNOMED Code(s): 14409192 Code(s): E87.5 - HYPERKALEMIA Status: Acute Priority: High Current Visit: Yes (2) COPD exacerbation SNOMED Code(s): 378910907 Code(s): J44.1 - CHRONIC OBSTRUCTIVE PULMONARY DISEASE W (ACUTE) EXACERBATION Status: Acute Priority: High Current Visit: Yes (3) Congestive heart failure SNOMED Code(s): 66148794 Code(s): I50.9 - HEART FAILURE, UNSPECIFIED Status: Acute Priority: High Current Visit: Yes Qualifiers: Heart failure type: systolic Heart failure chronicity: acute on chronic Qualified Code(s): I50.23 - Acute on chronic systolic (congestive) heart failure (4) Pneumonia SNOMED Code(s): 107880788 Code(s): J18.9 - PNEUMONIA, UNSPECIFIED ORGANISM Status: Acute Priority: High Current Visit: Yes Qualifiers: Pneumonia type: due to other aerobic Gram-negative bacteria Laterality: right Lung location: lower lobe of lung Qualified Code(s): J15.6 - Pneumonia due to other Gram-negative bacteria (5) Palliative care status SNOMED Code(s): 387059640 Code(s): Z51.5 - ENCOUNTER FOR PALLIATIVE CARE Status: Acute Priority: High Current Visit: Yes - Problem List Review Problem List Initiated/Reviewed/Updated: Yes - My Orders Last 24 Hours: My Active Orders 07/23/21 20:00 methylPREDNISolone Sod Succ [Solu-MEDROL] 125 mg IVPUSH Q12H 07/24/21 10:41 Head wo Cont [CT] Routine Ibuprofen [Motrin] 400 mg PO Q6H PRN 07/24/21 11:15 Pharmacy to Dose - Vancomycin 1 dose .XX ASDIRECTED 07/24/21 11:30 VANCOmycin 1 GM/200 ML 1 gm Premix Bag 1 bag IV Q24H 07/25/21 05:45 BASIC METABOLIC PANEL,BMP [CHEM] DAILY C-REACTIVE PROTEIN [CHEM] DAILY CBC WITH AUTO DIFF [HEME] DAILY 07/25/21 08:00 Azithromycin [Zithromax] 500 mg Sodium Chloride 0.9% [Normal Saline (AdvBag)] 250 ml IV Q24H cefTRIAXone [Rocephin] 1 gm IVPUSH Q24H 07/26/21 05:45 BASIC METABOLIC PANEL,BMP [CHEM] DAILY C-REACTIVE PROTEIN [CHEM] DAILY CBC WITH AUTO DIFF [HEME] DAILY - Assessment Assessment:: RLL Pneumonia COPD Exacerbation Acute CHF Palliative Care Patient Headache - Plan Plan:: WBC has improved down to 8.3 today, CRP high yet at 33.9 but improved. Potassium now normalized at 4.6. BUN up at 35. Is consuming more fluids, eating 75% of meals today. Complaining of severe headache today, will proceed with CT scan of head. Sputum culture is growing out gram positive cocci and gram negative rods. Will add Vancomycin. Repeat labs in am. Await full sputum culture.
[2021-07-24] MEDS: Enoxaparin 30 MG/0.3 ML Syringe SUBCUT SCH (19:36)
[2021-07-25] MEDS: Levalbuterol HCl 1.25 MG/3 ML Neb NEB SCH ×6 (03:52→23:52)
[2021-07-25] MEDS: Montelukast 10 MG Tab PO SCH (07:57)
[2021-07-25] MEDS: guaiFENesin 200 MG Tab PO SCH ×3 (07:57→19:35)
[2021-07-25] MEDS: methylPREDNISolone Sodium Succinate 125 MG/2 ML SDV IVPUSH SCH ×2 (07:57→19:37)
[2021-07-25] MEDS: Cholecalciferol (Vitamin D3) 25 MCG Tab PO SCH (07:57)
[2021-07-25] MEDS: Torsemide 20 MG Tab PO SCH (07:57)
[2021-07-25] MEDS ORDERED: cefTRIAXone 1 GM Vial IVPUSH SCH (08:00)
[2021-07-25] MEDS: Azithromycin 500 MG in Sodium Chloride 0.9% 250 ML IV SCH (08:10)
[2021-07-25] MEDS ORDERED: Levofloxacin/Dextrose 5%-Water 500 MG in Premix Bag 1 BAG IV SCH (12:00)
--- NOTE | 2021-07-25 14:30 | PN ---
DATE: 07/25/2021 S: Bambi still is coughing up a lot of sputum. We did get sputum cultures back with sensitivities and we are going to switch her off the vancomycin as her staph is sensitive to fluoroquinolones. She is able to speak now, which is improved from when I saw her 2 days prior. Still tachypneic. She is eating well, very exertionally dyspneic. O: GENERAL: She is pleasant and cooperative, appears in no distress. HEENT: Grossly benign. NECK: Neck veins are nondistended. LUNGS: Lung sounds are clear. CARDIAC: Tones are regular. Tachy. ABDOMEN: Soft. EXTREMITIES: She has no peripheral edema. ASSESSMENT: 1. PNEUMONIA. 2. CHRONIC OBSTRUCTIVE PULMONARY DISEASE EXACERBATION. 3. MILD HYPERKALEMIA. 4. PALLIATIVE CARES. 5. ELEVATED PROBNP WITH A NORMAL ECHO, CURRENTLY EUVOLEMIC. P: We will switch her off the vancomycin and Rocephin and put her on IV Levaquin as both organisms which included enterobacter and staph are sensitive to fluoroquinolones. Continue to monitor her progress. She will likely need to stay through the weekend. We will likely put her in swing bed tomorrow. Repeat lab in the morning. RUDOLPH/HUMBERTO /[id number]
[2021-07-25] MEDS: Pantoprazole 40 MG Tab.CR PO SCH (14:31)
[2021-07-25] MEDS: Enoxaparin 30 MG/0.3 ML Syringe SUBCUT SCH (19:35)
[2021-07-26] MEDS: Levalbuterol HCl 1.25 MG/3 ML Neb NEB SCH ×2 (03:50→07:52)
[2021-07-26 05:57] VITALS: PULSE 77
[2021-07-26] MEDS: Pantoprazole 40 MG Tab.CR PO SCH (07:09)
[2021-07-26] MEDS: guaiFENesin 200 MG Tab PO SCH (07:52)
[2021-07-26] MEDS: Montelukast 10 MG Tab PO SCH (07:52)
[2021-07-26] MEDS: Torsemide 20 MG Tab PO SCH (07:52)
[2021-07-26] MEDS: Cholecalciferol (Vitamin D3) 25 MCG Tab PO SCH (07:52)
[2021-07-26] MEDS: methylPREDNISolone Sodium Succinate 125 MG/2 ML SDV IVPUSH SCH (07:52)
[2021-07-26 08:24] VITALS: BP 122/55
[2021-07-26] MEDS: Azithromycin 500 MG in Sodium Chloride 0.9% 250 ML IV SCH (10:55)
[2021-07-26] MEDS ORDERED: Levofloxacin/Dextrose 5%-Water 250 MG in Premix Bag 1 BAG IV SCH (12:00)
--- NOTE | 2021-07-26 13:31 | DISCH ---
ADMISSION DIAGNOSES: 1. Pneumonia. 2. Chronic obstructive pulmonary disease exacerbation. 3. Hyperkalemia. 4. Palliative care. 5. [id number] congestive heart failure. DISCHARGE DIAGNOSIS: 1. RIGHT LOWER LOBE PNEUMONIA WITH POSITIVE STAPHYLOCOCCUS AND ENTEROBACTER SPUTUM. 2. CHRONIC OBSTRUCTIVE PULMONARY DISEASE EXACERBATION. 3. HYPERKALEMIA. 4. PALLIATIVE CARES. 5. MILD ACUTE EXACERBATION OF CHRONIC DIASTOLIC CONGESTIVE HEART FAILURE. HISTORY: The patient is an 81-year-old with known advanced COPD. She presented to the emergency room where Arlet Early evaluated for increasing shortness of breath, cough, and fevers. The patient had a markedly elevated white count and CRP upon admit. She was mildly hyperkalemic at 5.1 and her CRP was high at 40. COVID test was negative. Chest x-ray confirmed a right lower lobe pneumonia. The patient was admitted and started on Rocephin and Zithromax. HOSPITAL COURSE: The patient clinically did well while here. She did have an elevated proBNP on admit, not a lot of peripheral edema, but her chest x-ray maybe showed a little bit of increased vascular congestion, so she did get 1 dose of IV Lasix and responded nicely. She was kept under appropriate antibiotics until sputum culture showed Staph and Enterobacter. We switched her to vancomycin and Rocephin. When sensitivities came back, she is sensitive for quinolones for both organisms, so she has been switched to Levaquin initially at a 500 mg dose and then 250 daily. She has done very well. She has not spiked a temp in over 24 hours. Her blood pressures are fine. We have been able to take her oxygen down from 3 L nasal cannula to 2. She has had marked improvement in her shortness of breath and clinically looks improved. She is still very weak and fragile. We are going to get her into swing bed for further IV antibiotics and physical therapy for strengthening. The mild hyperkalemia on admit resolved with IV Lasix. Her CRP is down to 7.3 from 40 on admit and her white blood cell count is down from 19.5 on admission to 7.6. She will have ongoing IV antibiotics, physical therapy during her swing bed course. COMPLICATIONS: During her stay were none. CONSULTATIONS: None. DISPOSITION: Transfer to swing bed. RUDOLPH/HUMBERTO /[id number]
== END 2021-07-26 11:32 | disposition swing bed (61) | DRG 177 ==
LOC: CC.ED 04:49 → CC.MS 05:44 → UNDOADMIN 05:50 → CC.MS 05:50
PROVIDERS: ADMIT Physician Assistant Medical; ATTEND Family Medicine
DX: J15.6 Pneumonia due to other Gram-negative bacteria (principal); I50.33 Acute on chronic diastolic (congestive) heart failure; J18.9 Pneumonia, unspecified organism; J44.0 Chronic obstructive pulmonary disease with (acute) lower respiratory infection; J15.20 Pneumonia due to staphylococcus, unspecified; J44.1 Chronic obstructive pulmonary disease with (acute) exacerbation; E87.5 Hyperkalemia; I50.23 Acute on chronic systolic (congestive) heart failure; Z51.5 Encounter for palliative care; E78.00 Pure hypercholesterolemia, unspecified; K21.9 Gastro-esophageal reflux disease without esophagitis; M19.90 Unspecified osteoarthritis, unspecified site; Z99.81 Dependence on supplemental oxygen; M81.0 Age-related osteoporosis without current pathological fracture; Z87.891 Personal history of nicotine dependence; Z90.49 Acquired absence of other specified parts of digestive tract; Z88.8 Allergy status to other drugs, medicaments and biological substances; Z79.899 Other long term (current) drug therapy; Z20.822 Contact with and (suspected) exposure to COVID-19
CPT/HCPCS: 36415; 70450; 71045; 71275; 80048; 80053; 82550; 83615; 83735; 83880; 84132; 84484; 85025; 85379; 86140; 87070; 87077; 87088; 87186; 87205; 93005; 93010; 93306; 94640; 96374; 96375; 99285-25; A9270-GY; J0456; J0696; J1650; J1940; J1956; J2405; J2930; J3370; J7030; J7050; J7612-GY; Q9967; U0002

== ENCOUNTER 2021-07-26 11:38 | Inpatient (IN) | payer MEDICARE, BC ==
[2021-07-26] MEDS ORDERED: Polyethylene Glycol 3350 Powder 17 GM Packet PO PRN (12:13)
[2021-07-26] MEDS ORDERED: Albuterol 8 GM Inhaler INH PRN (12:13)
[2021-07-26] MEDS ORDERED: Ondansetron 4 MG/2 ML SDV IV PRN (12:13)
[2021-07-26] MEDS ORDERED: ALPRAZolam 0.25 MG Tab PO PRN (12:13)
[2021-07-26] MEDS ORDERED: Ondansetron 4 MG Tab.DIS PO PRN (12:13)
[2021-07-26] MEDS ORDERED: Albuterol 0.083% 2.5 MG/3 ML Neb Soln NEB PRN (12:13)
[2021-07-26] MEDS: Levalbuterol HCl 1.25 MG/3 ML Neb NEB SCH ×3 (12:44→19:20)
[2021-07-26] MEDS: Levofloxacin/Dextrose 5%-Water 250 MG in Premix Bag 1 BAG IV SCH (12:44)
[2021-07-26] MEDS: guaiFENesin 200 MG Tab PO SCH ×2 (14:55→19:19)
[2021-07-26] MEDS: Enoxaparin 30 MG/0.3 ML Syringe SUBCUT SCH (19:20)
[2021-07-27] MEDS: Pantoprazole 40 MG Tab.CR PO SCH (07:38)
[2021-07-27] MEDS: Cholecalciferol (Vitamin D3) 25 MCG Tab PO SCH (07:38)
[2021-07-27] MEDS: Torsemide 20 MG Tab PO SCH (07:38)
[2021-07-27] MEDS: Levalbuterol HCl 1.25 MG/3 ML Neb NEB SCH ×4 (07:38→19:34)
[2021-07-27] MEDS: methylPREDNISolone Sodium Succinate 125 MG/2 ML SDV IVPUSH SCH (07:38)
[2021-07-27] MEDS: guaiFENesin 200 MG Tab PO SCH ×3 (07:38→19:34)
[2021-07-27] MEDS: Montelukast 10 MG Tab PO SCH (07:38)
[2021-07-27] MEDS: Levofloxacin/Dextrose 5%-Water 250 MG in Premix Bag 1 BAG IV SCH (11:43)
[2021-07-27] MEDS: Acetaminophen 325 MG Tab PO PRN (13:22)
[2021-07-27] MEDS: Enoxaparin 30 MG/0.3 ML Syringe SUBCUT SCH (19:34)
[2021-07-27] MEDS: Codeine/Promethazine 10-6.25 MG/5 ML Syrup 5 ML UD Cup PO PRN (23:03)
[2021-07-28] MEDS: guaiFENesin 200 MG Tab PO SCH ×3 (07:53→19:49)
[2021-07-28] MEDS: Montelukast 10 MG Tab PO SCH (07:53)
[2021-07-28] MEDS: Torsemide 20 MG Tab PO SCH (07:53)
[2021-07-28] MEDS: Acetaminophen 325 MG Tab PO PRN (07:53)
[2021-07-28] MEDS: Pantoprazole 40 MG Tab.CR PO SCH (07:53)
[2021-07-28] MEDS: Cholecalciferol (Vitamin D3) 25 MCG Tab PO SCH (07:53)
[2021-07-28] MEDS: methylPREDNISolone Sodium Succinate 125 MG/2 ML SDV IVPUSH SCH (07:54)
[2021-07-28] MEDS: Levalbuterol HCl 1.25 MG/3 ML Neb NEB SCH ×4 (07:54→19:46)
[2021-07-28] MEDS: Levofloxacin/Dextrose 5%-Water 250 MG in Premix Bag 1 BAG IV SCH (12:04)
[2021-07-28] MEDS: Codeine/Promethazine 10-6.25 MG/5 ML Syrup 5 ML UD Cup PO PRN (19:46)
[2021-07-28] MEDS: Enoxaparin 30 MG/0.3 ML Syringe SUBCUT SCH (19:46)
[2021-07-29] MEDS: Cholecalciferol (Vitamin D3) 25 MCG Tab PO SCH (07:41)
[2021-07-29] MEDS: methylPREDNISolone Sodium Succinate 125 MG/2 ML SDV IVPUSH SCH (07:41)
[2021-07-29] MEDS: Pantoprazole 40 MG Tab.CR PO SCH (07:42)
[2021-07-29] MEDS: Levalbuterol HCl 1.25 MG/3 ML Neb NEB SCH ×4 (07:42→20:21)
[2021-07-29] MEDS: Torsemide 20 MG Tab PO SCH (07:42)
[2021-07-29] MEDS: Montelukast 10 MG Tab PO SCH (07:43)
[2021-07-29] MEDS: guaiFENesin 200 MG Tab PO SCH ×3 (07:45→20:21)
[2021-07-29] MEDS: Levofloxacin/Dextrose 5%-Water 250 MG in Premix Bag 1 BAG IV SCH (11:31)
--- NOTE | 2021-07-29 13:43 | PN ---
DATE: 07/29/2021 S: Bambi is feeling better. She has not spiked any temps. She is requiring only 2 L, which is her baseline for maintaining her sats above 90 and she has been around 94% to 95%, and getting her Solu-Medrol and IV Levaquin, and her nebs without any difficulty. She still feels very weak. O: GENERAL: She is in her usual state. Pursed lip breathing unchanged. NECK: Neck veins are flat. LUNGS: Lung sounds are diminished throughout, but she has no audible inspiratory or expiratory wheezes at this time. Still a little rhonchus in the bases. CARDIAC: Tones are regular. ABDOMEN: Soft. She has no peripheral edema. ASSESSMENT: 1. PNEUMONIA. 2. CHRONIC OBSTRUCTIVE PULMONARY DISEASE EXACERBATION. P: I am going to repeat her chest x-ray and lab tomorrow. We will try to come up with a plan for home in the near future. RUDOLPH/HUMBERTO /[id number]
[2021-07-29] MEDS: Nystatin Susp 100,000 Unit/ML 5 ML UD Cup PO SCH ×2 (16:32→20:20)
[2021-07-29] MEDS: Enoxaparin 30 MG/0.3 ML Syringe SUBCUT SCH (20:21)
[2021-07-30] MEDS: Levalbuterol HCl 1.25 MG/3 ML Neb NEB SCH ×4 (07:15→20:43)
[2021-07-30] MEDS: Torsemide 20 MG Tab PO SCH (07:16)
[2021-07-30] MEDS: Montelukast 10 MG Tab PO SCH (07:17)
[2021-07-30] MEDS: Nystatin Susp 100,000 Unit/ML 5 ML UD Cup PO SCH ×4 (07:17→20:42)
[2021-07-30] MEDS: guaiFENesin 200 MG Tab PO SCH ×3 (07:17→20:42)
[2021-07-30] MEDS: Pantoprazole 40 MG Tab.CR PO SCH (07:17)
[2021-07-30] MEDS: Cholecalciferol (Vitamin D3) 25 MCG Tab PO SCH (07:18)
[2021-07-30] MEDS: methylPREDNISolone Sodium Succinate 125 MG/2 ML SDV IVPUSH SCH (07:19)
[2021-07-30] MEDS: Ibuprofen 200 MG Tab PO PRN (07:30)
[2021-07-30] MEDS ORDERED: POTASSIUM CHLORIDE RIDERS IV ONE (09:51)
[2021-07-30] MEDS ORDERED: LIDOCAINE 1% IV ONE (09:51)
[2021-07-30] MEDS: Potassium Chloride 10 MEQ Tab.ER PO SCH (11:35)
[2021-07-30] MEDS: Acetaminophen 325 MG Tab PO PRN (13:46)
[2021-07-30] MEDS: Levofloxacin/Dextrose 5%-Water 250 MG in Premix Bag 1 BAG IV SCH (14:52)
[2021-07-30] MEDS: Enoxaparin 30 MG/0.3 ML Syringe SUBCUT SCH (20:42)
[2021-07-31] MEDS: guaiFENesin 200 MG Tab PO SCH ×3 (07:35→19:57)
[2021-07-31] MEDS: Potassium Chloride 10 MEQ Tab.ER PO SCH (07:35)
[2021-07-31] MEDS: Torsemide 20 MG Tab PO SCH (07:35)
[2021-07-31] MEDS: Cholecalciferol (Vitamin D3) 25 MCG Tab PO SCH (07:35)
[2021-07-31] MEDS: Levalbuterol HCl 1.25 MG/3 ML Neb NEB SCH ×4 (07:35→19:55)
[2021-07-31] MEDS: Pantoprazole 40 MG Tab.CR PO SCH (07:35)
[2021-07-31] MEDS: Montelukast 10 MG Tab PO SCH (07:35)
[2021-07-31] MEDS: Nystatin Susp 100,000 Unit/ML 5 ML UD Cup PO SCH ×4 (07:35→19:54)
[2021-07-31] MEDS: Levofloxacin/Dextrose 5%-Water 250 MG in Premix Bag 1 BAG IV SCH (11:38)
[2021-07-31] MEDS: Acetaminophen 325 MG Tab PO PRN (11:38)
[2021-07-31] MEDS: Enoxaparin 30 MG/0.3 ML Syringe SUBCUT SCH (19:53)
[2021-08-01] MEDS: Cholecalciferol (Vitamin D3) 25 MCG Tab PO SCH (08:02)
[2021-08-01] MEDS: guaiFENesin 200 MG Tab PO SCH ×3 (08:02→19:47)
[2021-08-01] MEDS: Potassium Chloride 10 MEQ Tab.ER PO SCH (08:02)
[2021-08-01] MEDS: Nystatin Susp 100,000 Unit/ML 5 ML UD Cup PO SCH ×4 (08:02→19:44)
[2021-08-01] MEDS: Torsemide 20 MG Tab PO SCH (08:03)
[2021-08-01] MEDS: Levalbuterol HCl 1.25 MG/3 ML Neb NEB SCH ×4 (08:03→19:47)
[2021-08-01] MEDS: Montelukast 10 MG Tab PO SCH (08:03)
[2021-08-01] MEDS: Pantoprazole 40 MG Tab.CR PO SCH (08:03)
[2021-08-01] MEDS: Levofloxacin/Dextrose 5%-Water 250 MG in Premix Bag 1 BAG IV SCH (11:19)
[2021-08-01] MEDS: Enoxaparin 30 MG/0.3 ML Syringe SUBCUT SCH (19:43)
[2021-08-01] MEDS: Ibuprofen 200 MG Tab PO PRN (19:50)
[2021-08-02] MEDS: Levalbuterol HCl 1.25 MG/3 ML Neb NEB SCH (07:33)
[2021-08-02] MEDS: Pantoprazole 40 MG Tab.CR PO SCH (07:34)
[2021-08-02] MEDS: Montelukast 10 MG Tab PO SCH (07:34)
[2021-08-02] MEDS: guaiFENesin 200 MG Tab PO SCH (07:34)
[2021-08-02] MEDS: Potassium Chloride 10 MEQ Tab.ER PO SCH (07:34)
[2021-08-02] MEDS: Cholecalciferol (Vitamin D3) 25 MCG Tab PO SCH (07:34)
[2021-08-02] MEDS: Nystatin Susp 100,000 Unit/ML 5 ML UD Cup PO SCH (07:34)
[2021-08-02] MEDS: Torsemide 20 MG Tab PO SCH (07:34)
[2021-08-02 07:41] VITALS: BP 93/58; PULSE 75
--- NOTE | 2021-08-02 11:53 | DISCH ---
ADMISSION DIAGNOSES: 1. Pneumonia. 2. Chronic obstructive pulmonary disease exacerbation. DISCHARGE DIAGNOSIS: 1. PNEUMONIA. 2. CHRONIC OBSTRUCTIVE PULMONARY DISEASE EXACERBATION. 3. HYPOKALEMIA, RESOLVED. HISTORY: Bambi is an 81-year-old female with known advanced COPD, on home O2. She presented and was treated in Acute Care for a documented pneumonia with COPD exacerbation. She was still very weak requiring extra O2 and we elected to put her in swing bed for further cares and IV treatment, physical therapy, etc. HOSPITAL COURSE: The patient did well while here. She had a followup chest x- ray which showed resolution of her pneumonia. Lab work normalized, white count going down. Her CRP is almost back to 0. She did get a little hypokalemic. She is on torsemide and we started her on oral potassium replacement and she is back in the normal range of this point. She has not spiked any temps. Physical therapy has been up, and she has been ambulating and getting stronger and she feels comfortable for discharge. She has had a full 10 days of IV antibiotics and will not go home on any further. She will be back on her normal pulmonary regimen. A script for KCl and nystatin as she does get some oral yeast infections was given. We will follow her up in the clinic in the next 2 weeks for recheck. COMPLICATIONS: During her stay were none. CONSULTATIONS: PT. DISPOSITION: Discharged home. ALLYN /[id number]
== END 2021-08-02 12:11 | disposition home or self-care (01) | DRG 178 ==
LOC: CC.MS 11:38 → UNDOADMIN 11:38 → CC.MS 12:13
PROVIDERS: ADMIT Family Medicine; ATTEND Family Medicine
DX: J15.20 Pneumonia due to staphylococcus, unspecified (principal); J44.0 Chronic obstructive pulmonary disease with (acute) lower respiratory infection; J44.1 Chronic obstructive pulmonary disease with (acute) exacerbation; I50.32 Chronic diastolic (congestive) heart failure; E87.6 Hypokalemia; Z51.5 Encounter for palliative care; J15.6 Pneumonia due to other Gram-negative bacteria
CPT/HCPCS: 36415; 71046; 80048; 83735; 85025; 86140; 94640; 97110-GP; 97161-GP; A9270-GY; J1650; J1956; J2930; J3480; J7612-GY

== ENCOUNTER 2021-08-12 12:30 | Emergency (ER) | payer MEDICARE, BC ==
[2021-08-12] MEDS: Albuterol/Ipratropium 3.0-0.5 MG/3 ML Neb Soln NEB ONE (12:51)
[2021-08-12 13:02] VITALS: BP 117/60; PULSE 110
[2021-08-12] MEDS ORDERED: Iopamidol 755 Mg/ML 100 ML Bottle IVPUSH ONE (13:07)
[2021-08-12] MEDS: Iopamidol 755 Mg/ML 100 ML Bottle IVPUSH ONE (13:07)
--- NOTE | 2021-08-12 13:51 | EDM.PDOC ---
ED HPI GENERAL MEDICAL PROBLEM - General Chief Complaint: Respiratory Problem Stated Complaint: short of breath Time Seen by Provider: 08/12/21 12:39 Source of Information: Reports: Patient, Family (elida) History Limitations: Reports: No Limitations - History of Present Illness INITIAL COMMENTS - FREE TEXT/NARRATIVE: This patient is an 81 year old female that presented to the clinic, sent the ER. Patient reports she has a history of COPD and wears oxygen at home 2L [place]. Which she is currently on. Patient reports she was admitted to hospital for pneumonia and COPD and discharged from hospital 10 days ago. Patient reports that started yesterday with increased shortness of breath and that she could not ambulate without catching her breath. Denies n, v, d, f, congestion, drainage. Reports chronic productive cough. Onset Date: 08/11/21 Duration: Day(s): (1) Severity: Severe Improves with: Reports: None Worsens with: Reports: None Associated Symptoms: Reports: Cough, cough w sputum, Shortness of Breath. Denies: Confusion, Chest Pain, Diaphoresis, Fever/Chills, Headaches, Loss of Appetite, Malaise, Nausea/Vomiting, Rash, Seizure, Syncope, Weakness Chest Pain Score (Numeric/FACES): 6 Headache Pain Score (Numeric/FACES): 6 - Related Data Allergies Allergy/AdvReac Type Severity Reaction Status Date / Time budesonide Allergy Cough Verified 08/12/21 12:55 roflumilast [From Daliresp] AdvReac Nausea Verified 08/12/21 12:55 Home Meds: Home Meds Acetaminophen [Tylenol Extra Strength] 1,000 mg PO ASDIRECTED PRN 09/02/18 [History] Albuterol [Ventolin HFA] 1 puff INH Q6HR PRN 09/02/18 [History] Omeprazole 20 mg PO DAILY 09/02/18 [History] Torsemide 20 mg PO DAILY 09/02/18 [History] Albuterol/Ipratropium [DuoNeb 3.0-0.5 MG/3 ML] 3 ml NEB QIDRT #1 box 08/19/19 [Rx] Cholecalciferol (Vitamin D3) [Vitamin D] 5,000 units PO DAILY 07/23/21 [History] Montelukast [Singulair] 10 mg PO DAILY 07/23/21 [History] Potassium Chloride [Klor-Con 10] 20 meq PO DAILY #30 tab.er 08/02/21 [Rx] Past Medical History Cardiovascular History: Reports: High Cholesterol, SOB on Exertion Respiratory History: Reports: Asthma, COPD Other Respiratory History: says she was diagnosed with COPD several years ago; went to 12 sessions of pulmonary rehab in [place]--attended 12 sessions there. Said she used the treadmill and bike in [place]. 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 saw Dr. Chakraborty last week for a followup appt. PFT's done on 08-10-18: FEV1 35%, pre FEV1/FVC pre 49---Severe COPD Gastrointestinal History: Reports: [employer] History: Reports: Musculoskeletal History: Reports: Arthritis, Back Pain, Chronic, Osteoporosis - Past Surgical History GI Surgical History: Reports: Cholecystectomy Other Musculoskeletal Surgeries/Procedures:: says she has back problems Social & Family History - Family History Family Medical History: No Pertinent Family History - Tobacco Use Tobacco Use Status *Q: Former Tobacco User Used Tobacco, but Quit: Yes Month/Year Tobacco Last Used: 1995 - Caffeine Use Caffeine Use: Reports: Soda ED ROS GENERAL - Review of Systems Review Of Systems: See Below Constitutional: Reports: No Symptoms HEENT: Reports: No Symptoms Respiratory: Reports: Shortness of Breath, Cough, Sputum Cardiovascular: Reports: No Symptoms Endocrine: Reports: No Symptoms GI/Abdominal: Reports: No Symptoms : Reports: No Symptoms Musculoskeletal: Reports: No Symptoms Skin: Reports: No Symptoms Neurological: Reports: No Symptoms Psychiatric: Reports: No Symptoms Hematologic/Lymphatic: Reports: No Symptoms Immunologic: Reports: No Symptoms ED EXAM, GENERAL - Physical Exam Exam: See Below Exam Limited By: No Limitations General Appearance: Alert, WD/WN, No Apparent Distress Eye Exam: Bilateral Eye: Normal Inspection, PERRL Ears: Normal External Exam, Normal Canal, Hearing Grossly Normal, Normal TMs Ear Exam: Bilateral Ear: Auricle Normal, Canal Normal, TM normal Nose: Normal Inspection, Normal Mucosa, No Blood Throat/Mouth: Normal Inspection, Normal Lips, Normal Gums, Normal Oropharynx, Normal Voice, No Airway Compromise Head: Atraumatic, Normocephalic Neck: Normal Inspection, Supple, Non-Tender Respiratory/Chest: No Accessory Muscle Use, Chest Non-Tender, Decreased Breath Sounds (severely throughout), Accessory Muscle Use, Retractions Cardiovascular: Normal Peripheral Pulses, Tachycardia (126 on exam) Peripheral Pulses: 2+: Radial (L), Radial (R), Posterior Tibial (L), Posterior Tibial (R) GI/Abdominal: Soft, Non-Tender Back Exam: Normal Inspection, Full Range of Motion Extremities: Normal Inspection, Normal Range of Motion, Non-Tender, No Pedal Edema, Normal Capillary Refill Neurological: Alert, Oriented, Normal Cognition, Unresponsive Psychiatric: Anxious Skin Exam: Warm, Dry, Intact, Normal Color, No Rash Lymphatic: No Adenopathy #1 Interpretation EKG Date: 08/12/21 Time: 12:46 Rate (Beats/Min): 109 ST-T: Normal Course - Vital Signs Last Recorded V/S: Last Vital Signs Temp 97.9 F 08/12/21 12:30 Pulse 110 H 08/12/21 12:59 Resp 21 H 08/12/21 12:59 BP 117/60 08/12/21 12:59 Pulse Ox 99 08/12/21 12:59 - Orders/Labs/Meds Orders: Active Orders 24 hr Category Date Time Status Oxygen Therapy, ED [RC] ASDIRECTED Care 08/12/21 12:30 Active RT Aerosol Therapy [RC] ASDIRECTED Care 08/12/21 12:43 Active Ang Chest [CT] Stat Exams 08/12/21 12:41 Taken Chest 2V [CR] Stat Exams 08/12/21 12:41 Taken CULTURE BLOOD [BC] Stat Lab 08/12/21 13:03 Received CULTURE BLOOD [BC] Stat Lab 08/12/21 13:03 Received CULTURE SPUTUM + SMEAR [RM] Stat Lab 08/12/21 13:51 Ordered Blood Culture x2 Reflex Set [OM.PC] Stat Oth 08/12/21 12:41 Ordered EKG 12 Lead [EK] Stat Ther 08/12/21 12:41 Ordered Labs: Laboratory Tests 08/12/21 08/12/21 08/12/21 Range/Units 12:42 13:03 13:03 WBC 5.9 (4.0-11.0) 10^3/uL RBC 3.89 L (4.00-5.50) x10^6/uL Hgb 11.1 L (12.0-16.0) g/dL Hct 34.6 L (37.0-47.0) % MCV 88.9 (83.0-97.0) fL MCH 28.5 (27.0-32.0) pg MCHC 32.1 (32.0-36.0) g/dL RDW Coeff of Vivek 13.9 (11.0-15.0) % Plt Count 222 (150-400) 10^3/uL Immature Gran % (Auto) 0.0 (0.0-4.9) % Neut % (Auto) 76.0 H (41-71) % Lymph % (Auto) 14.6 L (24-44) % Carter % (Auto) 8.7 (0-10) % Eos % (Auto) 0.2 (0-6) % Baso % (Auto) 0.5 (0-1) % Neut # (Auto) 4.48 (1.80-8.00) x10^3/uL Lymph # (Auto) 0.86 (0.60-5.00) 10^3/uL Carter # (Auto) 0.51 (0.00-1.50) 10^3/uL Eos # (Auto) 0.01 (0.00-1.50) 10^3/uL Baso # (Auto) 0.03 (0.00-0.50) 10^3/uL Immature Gran # (Auto) 0.00 (0.00-0.49) 10^3/uL D-Dimer, Quantitative 0.47 (0.00-0.50) Sodium (136-145) mEq/L Potassium (3.5-5.0) mEq/L Chloride (98-106) mEq/L Carbon Dioxide (21-32) mmol/L BUN (7-18) mg/dL Creatinine (0.6-1.0) mg/dL Est Cr Clr Drug Dosing mL/min Estimated GFR (MDRD) (>=60) mL/min Glucose (75-99) mg/dL Lactic Acid (0.4-2.0) mmol/L Calcium (8.4-10.1) mg/dL Total Bilirubin (0.0-1.0) mg/dL AST (15-37) U/L ALT (12-78) U/L Alkaline Phosphatase (46-116) U/L Creatine Kinase (21-215) U/L Troponin I High Sens (<=51) pg/mL C-Reactive Protein (0.2-0.8) mg/dL NT-Pro-B Natriuret Pep (0-1000) pg/mL Total Protein (6.4-8.2) g/dL Albumin (3.4-5.0) g/dL SARS CoV-2 RNA Rapid KING Negative (NEGATIVE) 08/12/21 08/12/21 Range/Units 13:03 13:03 WBC (4.0-11.0) 10^3/uL RBC (4.00-5.50) x10^6/uL Hgb (12.0-16.0) g/dL Hct (37.0-47.0) % MCV (83.0-97.0) fL MCH (27.0-32.0) pg MCHC (32.0-36.0) g/dL RDW Coeff of Vivek (11.0-15.0) % Plt Count (150-400) 10^3/uL Immature Gran % (Auto) (0.0-4.9) % Neut % (Auto) (41-71) % Lymph % (Auto) (24-44) % Carter % (Auto) (0-10) % Eos % (Auto) (0-6) % Baso % (Auto) (0-1) % Neut # (Auto) (1.80-8.00) x10^3/uL Lymph # (Auto) (0.60-5.00) 10^3/uL Carter # (Auto) (0.00-1.50) 10^3/uL Eos # (Auto) (0.00-1.50) 10^3/uL Baso # (Auto) (0.00-0.50) 10^3/uL Immature Gran # (Auto) (0.00-0.49) 10^3/uL D-Dimer, Quantitative (0.00-0.50) Sodium 144 (136-145) mEq/L Potassium 4.1 (3.5-5.0) mEq/L Chloride 103 (98-106) mEq/L Carbon Dioxide 35 H (21-32) mmol/L BUN 14 D (7-18) mg/dL Creatinine 1.1 H (0.6-1.0) mg/dL Est Cr Clr Drug Dosing 29.24 mL/min Estimated GFR (MDRD) 47 L (>=60) mL/min Glucose 155 H D (75-99) mg/dL Lactic Acid 1.1 (0.4-2.0) mmol/L Calcium 8.9 (8.4-10.1) mg/dL Total Bilirubin 0.4 (0.0-1.0) mg/dL AST 18 (15-37) U/L ALT 18 (12-78) U/L Alkaline Phosphatase 73 (46-116) U/L Creatine Kinase 16 L (21-215) U/L Troponin I High Sens 6.6 (<=51) pg/mL C-Reactive Protein 0.2 (0.2-0.8) mg/dL NT-Pro-B Natriuret Pep 572 (0-1000) pg/mL Total Protein 6.8 (6.4-8.2) g/dL Albumin 3.6 (3.4-5.0) g/dL SARS CoV-2 RNA Rapid KING (NEGATIVE) Meds: Medications Discontinued Medications Generic Name Dose Route Start Last Admin Trade Name Freq PRN Reason Stop Dose Admin Albuterol/Ipratropium 3 ml 08/12/21 12:42 08/12/21 12:51 Albuterol/Ipratropium 3.0-0.5 Mg/3 Ml Neb Soln NEB 08/12/21 12:43 3 ml ONETIME ONE Administration Iopamidol 100 ml 08/12/21 12:47 08/12/21 13:07 Iopamidol 755 Mg/Ml 100 Ml Bottle IVPUSH 08/12/21 12:48 100 ml ONETIME ONE Administration Iopamidol 100 ml 08/12/21 13:07 Iopamidol 755 Mg/Ml 100 Ml Bottle IVPUSH 08/12/21 13:08 ONETIME ONE - Radiology Interpretation Free Text/Narrative:: cxr: COPD CTA: No PE that I see, waiting radiologist review Departure - Departure Time of Disposition: 13:57 Disposition: DC/Tfer W/I Hosp To Swing 61 Condition: Fair Clinical Impression: COPD exacerbation - Discharge Information *PRESCRIPTION DRUG MONITORING PROGRAM REVIEWED*: Not Applicable *COPY OF PRESCRIPTION DRUG MONITORING REPORT IN PATIENT KATELYN: Not Applicable Forms: ED Department Discharge Sepsis Event Note (ED) - Evaluation Sepsis Screening Result: Possible Sepsis Risk - Focused Exam Vital Signs: Vital Signs Temp Pulse Resp BP Pulse Ox 08/12/21 12:59 110 H 21 H 117/60 99 08/12/21 12:30 97.9 F 118 H 28 H 114/58 L 94 L - My Orders Last 24 Hours: My Active Orders 08/12/21 12:30 Oxygen Therapy, ED [RC] ASDIRECTED 08/12/21 12:41 Ang Chest [CT] Stat Chest 2V [CR] Stat Blood Culture x2 Reflex Set [OM.PC] Stat EKG 12 Lead [EK] Stat 08/12/21 12:43 RT Aerosol Therapy [RC] ASDIRECTED 08/12/21 13:03 CULTURE BLOOD [BC] Stat CULTURE BLOOD [BC] Stat 08/12/21 13:51 CULTURE SPUTUM + SMEAR [RM] Stat - Assessment/Plan Last 24 Hours: My Active Orders 08/12/21 12:30 Oxygen Therapy, ED [RC] ASDIRECTED 08/12/21 12:41 Ang Chest [CT] Stat Chest 2V [CR] Stat Blood Culture x2 Reflex Set [OM.PC] Stat EKG 12 Lead [EK] Stat 08/12/21 12:43 RT Aerosol Therapy [RC] ASDIRECTED 08/12/21 13:03 CULTURE BLOOD [BC] Stat CULTURE BLOOD [BC] Stat 08/12/21 13:51 CULTURE SPUTUM + SMEAR [RM] Stat Plan: PLEASE SEE RN NOTE FOR PFSH PLEASE USE ER H&P ADMIT H&P
== END 2021-08-12 14:00 | disposition swing bed (61) ==
LOC: CC.ED 12:30
DX: J44.1 Chronic obstructive pulmonary disease with (acute) exacerbation (principal); K21.9 Gastro-esophageal reflux disease without esophagitis; Z79.899 Other long term (current) drug therapy; Z88.8 Allergy status to other drugs, medicaments and biological substances; Z87.891 Personal history of nicotine dependence; Z20.822 Contact with and (suspected) exposure to COVID-19
CPT/HCPCS: 36415; 71046; 71275; 80053; 82550; 83605; 83880; 84484; 85025; 85379; 86140; 87040; 93005; 94640; 99284; 99285-25; J7620-GY; Q9967; U0002

== ENCOUNTER 2021-08-12 13:57 | Inpatient (IN) | payer MEDICARE, BC ==
[2021-08-12] MEDS ORDERED: Acetaminophen 325 MG Tab PO PRN (14:01)
[2021-08-12] MEDS ORDERED: Ibuprofen 200 MG Tab PO PRN (14:01)
[2021-08-12] MEDS ORDERED: methylPREDNISolone Sodium Succinate 125 MG/2 ML SDV IVPUSH SCH (15:00)
[2021-08-12] MEDS ORDERED: Albuterol 8 GM Inhaler INH PRN (15:02)
[2021-08-12] MEDS: Levofloxacin/Dextrose 5%-Water 500 MG in Premix Bag 1 BAG IV SCH (15:36)
[2021-08-12] MEDS ORDERED: Sodium Chloride 0.9% 500 ML IV ONE (16:00)
[2021-08-12] MEDS: Acetaminophen 500 MG Tab PO PRN (16:03)
[2021-08-12] MEDS: Albuterol/Ipratropium 3.0-0.5 MG/3 ML Neb Soln NEB SCH ×2 (16:04→19:30)
[2021-08-13] MEDS: Albuterol/Ipratropium 3.0-0.5 MG/3 ML Neb Soln NEB SCH ×4 (07:43→20:30)
[2021-08-13] MEDS: methylPREDNISolone Sodium Succinate 125 MG/2 ML SDV IVPUSH SCH ×2 (07:44→20:29)
[2021-08-13] MEDS: Enoxaparin 30 MG/0.3 ML Syringe SUBCUT SCH (07:46)
[2021-08-13] MEDS: Potassium Chloride 10 MEQ Tab.ER PO SCH (07:49)
[2021-08-13] MEDS: Torsemide 20 MG Tab PO SCH (07:49)
[2021-08-13] MEDS: Montelukast 10 MG Tab PO SCH (07:50)
[2021-08-13] MEDS: Pantoprazole 40 MG Tab.CR PO SCH (07:50)
[2021-08-13] MEDS ORDERED: Morphine 2 MG/ML SYRINGE IVPUSH PRN (10:23)
[2021-08-13] MEDS ORDERED: LORazepam 0.5 MG Tab PO PRN (10:23)
[2021-08-13] MEDS: Levofloxacin/Dextrose 5%-Water 500 MG in Premix Bag 1 BAG IV SCH (15:29)
[2021-08-14 07:32] LABS: CHLORIDE,CL 104 mEq/L (98-106); SODIUM,NA 146 mEq/L (136-145)
[2021-08-14] MEDS: Albuterol/Ipratropium 3.0-0.5 MG/3 ML Neb Soln NEB SCH ×4 (08:08→19:34)
[2021-08-14] MEDS: Potassium Chloride 10 MEQ Tab.ER PO SCH (08:09)
[2021-08-14] MEDS: Torsemide 20 MG Tab PO SCH (08:09)
[2021-08-14] MEDS: Enoxaparin 30 MG/0.3 ML Syringe SUBCUT SCH (08:09)
[2021-08-14] MEDS: Montelukast 10 MG Tab PO SCH (08:10)
[2021-08-14] MEDS: Pantoprazole 40 MG Tab.CR PO SCH (08:10)
[2021-08-14] MEDS: methylPREDNISolone Sodium Succinate 125 MG/2 ML SDV IVPUSH SCH ×2 (08:10→19:34)
[2021-08-14] MEDS: Levofloxacin/Dextrose 5%-Water 500 MG in Premix Bag 1 BAG IV SCH (16:01)
[2021-08-15] MEDS: Polyethylene Glycol 3350 Powder 17 GM Packet PO SCH (08:14)
[2021-08-15] MEDS: Montelukast 10 MG Tab PO SCH (08:14)
[2021-08-15] MEDS: Enoxaparin 30 MG/0.3 ML Syringe SUBCUT SCH (08:14)
[2021-08-15] MEDS: Potassium Chloride 10 MEQ Tab.ER PO SCH (08:14)
[2021-08-15] MEDS: Torsemide 20 MG Tab PO SCH (08:14)
[2021-08-15] MEDS: methylPREDNISolone Sodium Succinate 125 MG/2 ML SDV IVPUSH SCH ×2 (08:14→19:34)
[2021-08-15] MEDS: Albuterol/Ipratropium 3.0-0.5 MG/3 ML Neb Soln NEB SCH ×4 (08:14→19:46)
[2021-08-15] MEDS: Pantoprazole 40 MG Tab.CR PO SCH (08:14)
[2021-08-15] MEDS: Levofloxacin/Dextrose 5%-Water 500 MG in Premix Bag 1 BAG IV SCH (17:01)
[2021-08-15] MEDS: Acetaminophen 500 MG Tab PO PRN (20:00)
[2021-08-16] MEDS: Acetaminophen 500 MG Tab PO PRN ×2 (05:30→12:11)
[2021-08-16] MEDS: Montelukast 10 MG Tab PO SCH (07:33)
[2021-08-16] MEDS: Potassium Chloride 10 MEQ Tab.ER PO SCH (07:33)
[2021-08-16] MEDS: Torsemide 20 MG Tab PO SCH (07:33)
[2021-08-16] MEDS: Polyethylene Glycol 3350 Powder 17 GM Packet PO SCH (07:34)
[2021-08-16] MEDS: Albuterol/Ipratropium 3.0-0.5 MG/3 ML Neb Soln NEB SCH ×4 (07:34→20:08)
[2021-08-16] MEDS: methylPREDNISolone Sodium Succinate 125 MG/2 ML SDV IVPUSH SCH ×2 (07:34→20:05)
[2021-08-16] MEDS: Pantoprazole 40 MG Tab.CR PO SCH (07:34)
[2021-08-16] MEDS: Enoxaparin 30 MG/0.3 ML Syringe SUBCUT SCH (07:34)
[2021-08-16] MEDS: Levofloxacin/Dextrose 5%-Water 500 MG in Premix Bag 1 BAG IV SCH (16:18)
[2021-08-17] MEDS: Albuterol/Ipratropium 3.0-0.5 MG/3 ML Neb Soln NEB SCH ×4 (07:53→20:00)
[2021-08-17] MEDS: methylPREDNISolone Sodium Succinate 125 MG/2 ML SDV IVPUSH SCH ×2 (07:53→20:00)
[2021-08-17] MEDS: Polyethylene Glycol 3350 Powder 17 GM Packet PO SCH (07:53)
[2021-08-17] MEDS: Acetaminophen 500 MG Tab PO PRN ×2 (07:53→16:53)
[2021-08-17] MEDS: Enoxaparin 30 MG/0.3 ML Syringe SUBCUT SCH (07:53)
[2021-08-17] MEDS: Potassium Chloride 10 MEQ Tab.ER PO SCH (07:54)
[2021-08-17] MEDS: Torsemide 20 MG Tab PO SCH (07:54)
[2021-08-17] MEDS: Pantoprazole 40 MG Tab.CR PO SCH (07:54)
[2021-08-17] MEDS: Montelukast 10 MG Tab PO SCH (07:54)
[2021-08-17] MEDS: Levofloxacin/Dextrose 5%-Water 500 MG in Premix Bag 1 BAG IV SCH (15:53)
[2021-08-18] MEDS: Acetaminophen 500 MG Tab PO PRN ×2 (07:58→13:50)
[2021-08-18] MEDS: Torsemide 20 MG Tab PO SCH (07:59)
[2021-08-18] MEDS: Pantoprazole 40 MG Tab.CR PO SCH (07:59)
[2021-08-18] MEDS: methylPREDNISolone Sodium Succinate 125 MG/2 ML SDV IVPUSH SCH ×2 (07:59→19:56)
[2021-08-18] MEDS: Potassium Chloride 10 MEQ Tab.ER PO SCH (07:59)
[2021-08-18] MEDS: Montelukast 10 MG Tab PO SCH (07:59)
[2021-08-18] MEDS: Albuterol/Ipratropium 3.0-0.5 MG/3 ML Neb Soln NEB SCH ×4 (08:00→19:57)
[2021-08-18] MEDS: Enoxaparin 30 MG/0.3 ML Syringe SUBCUT SCH (08:00)
[2021-08-18] MEDS: Polyethylene Glycol 3350 Powder 17 GM Packet PO SCH (08:06)
[2021-08-18] MEDS: Levofloxacin/Dextrose 5%-Water 500 MG in Premix Bag 1 BAG IV SCH (16:01)
[2021-08-19] MEDS: methylPREDNISolone Sodium Succinate 125 MG/2 ML SDV IVPUSH SCH ×2 (07:31→19:41)
[2021-08-19] MEDS: Enoxaparin 30 MG/0.3 ML Syringe SUBCUT SCH (07:32)
[2021-08-19] MEDS: Polyethylene Glycol 3350 Powder 17 GM Packet PO SCH (07:32)
[2021-08-19] MEDS: Albuterol/Ipratropium 3.0-0.5 MG/3 ML Neb Soln NEB SCH ×4 (07:32→19:41)
[2021-08-19] MEDS: Pantoprazole 40 MG Tab.CR PO SCH (07:32)
[2021-08-19] MEDS: Potassium Chloride 10 MEQ Tab.ER PO SCH (07:32)
[2021-08-19] MEDS: Torsemide 20 MG Tab PO SCH (07:32)
[2021-08-19] MEDS: Nystatin Susp 100,000 Unit/ML 5 ML UD Cup PO SCH ×4 (07:32→19:41)
[2021-08-19] MEDS: Montelukast 10 MG Tab PO SCH (07:32)
[2021-08-19] MEDS: Acetaminophen 500 MG Tab PO PRN (11:58)
[2021-08-19] MEDS ORDERED: Nystatin Susp 100,000 Unit/ML 5 ML UD Cup PO SCH (12:00)
--- NOTE | 2021-08-19 14:08 | PN ---
DATE: 08/19/2021 S: Bambi continues to be stable. She is extremely short of breath, feels dyspneic and very agitated with that. A little fatigued since her Ativan, but it is making her breathing much more comfortable. O: NECK: Her neck veins are flat. LUNGS: On exam briefly, she has poor air movement in all lung liz. Otherwise clear. I do not hear rales, rhonchi, or wheeze at this time. CARDIAC: Her cardiac tones are tachy, but regular. ABDOMEN: Soft. EXTREMITIES: She has no peripheral edema. ASSESSMENT: 1. END-STAGE CHRONIC OBSTRUCTIVE PULMONARY DISEASE. 2. CURRENT YEAST INFECTION ORALLY. P: The patient is fine on going home on hospice in the near future. I believe family is trying to arrange this. We will talk with our social security specialist about that. I will put her on some nystatin for her mouth. We will stop the IV Levaquin and methylprednisolone. Should be able to be discharged home very quickly. RUDOLPH/HUMBERTO /[id number]
[2021-08-20] MEDS: Enoxaparin 30 MG/0.3 ML Syringe SUBCUT SCH (07:51)
[2021-08-20] MEDS: Montelukast 10 MG Tab PO SCH (07:52)
[2021-08-20] MEDS: Pantoprazole 40 MG Tab.CR PO SCH (07:52)
[2021-08-20] MEDS: Torsemide 20 MG Tab PO SCH (07:52)
[2021-08-20] MEDS: Potassium Chloride 10 MEQ Tab.ER PO SCH (07:52)
[2021-08-20] MEDS: methylPREDNISolone Sodium Succinate 125 MG/2 ML SDV IVPUSH SCH (07:52)
[2021-08-20] MEDS: Albuterol/Ipratropium 3.0-0.5 MG/3 ML Neb Soln NEB SCH ×2 (07:52→11:33)
[2021-08-20] MEDS: Acetaminophen 500 MG Tab PO PRN (07:52)
[2021-08-20] MEDS: Nystatin Susp 100,000 Unit/ML 5 ML UD Cup PO SCH ×2 (07:52→11:33)
[2021-08-20] MEDS: Polyethylene Glycol 3350 Powder 17 GM Packet PO SCH (07:52)
[2021-08-20 07:57] VITALS: BP 127/67; PULSE 89
--- NOTE | 2021-08-20 12:46 | DISCH ---
ADMISSION DIAGNOSIS: End-stage chronic obstructive pulmonary disease with exacerbation. DISCHARGE DIAGNOSIS: 1. END-STAGE CHRONIC OBSTRUCTIVE PULMONARY DISEASE. 2. ORAL THRUSH. HISTORY: The patient is an 81-year-old who was recently in acute care for pneumonia and COPD exacerbation. She rebounded back to her baseline and was back home where within a few day she just felt too much anxiety with breathing. She presented back to our emergency room, and [facility] during his weekend of locum coverage admitted her under direct admit swing bed for further cares including IV steroids. He did restart some antibiotics on her and continued most of her prior medications. SWING BED COURSE: The patient was stable and fine while in swing bed. We had a long discussion about her long-term care plan and she had agreed that hospice was a good idea for her. She would like to go home with it. She is on chronic O2 at 2 to 3 L. We are going to send her home on daily oral steroids. She did respond nicely to Ativan on an as-needed basis, we will continue that. She will continue with her DuoNebs, albuterol, Singulair. We did start her on nystatin for some oral thrush during her stay here. The patient certainly has a life expectancy of less than 6 months due to end- stage COPD and agrees to hospice consultation and management for that. Hospice has been notified of the patient's discharge and appropriate referrals have been made. COMPLICATIONS: During her stay were none. CONSULTATIONS: PT. DISPOSITION: Discharged home to hospice. ALLYN /[id number]
== END 2021-08-20 13:40 | disposition hospice, home (50) | DRG 191 ==
LOC: UNDOADMIN 13:57 → CC.MS 13:57
PROVIDERS: ADMIT Nurse Practitioner; ATTEND Family Medicine
DX: J44.9 Chronic obstructive pulmonary disease, unspecified (principal); B37.0 Candidal stomatitis; E78.00 Pure hypercholesterolemia, unspecified; K21.9 Gastro-esophageal reflux disease without esophagitis; Z88.8 Allergy status to other drugs, medicaments and biological substances; Z79.899 Other long term (current) drug therapy; Z90.49 Acquired absence of other specified parts of digestive tract; Z87.891 Personal history of nicotine dependence
CPT/HCPCS: 36415; 51702; 80048; 85025; 86140; 90662; 94640; A9270-GY; G0008; J1650; J1956; J2270; J2930; J7040; J7620-GY